=== PATIENT | female | born 1955 | race Caucasian/White ===

== ENCOUNTER 2020-01-03 09:21 | Outpatient (REF) | payer MEDICAID, SELFPAY | END 2020-01-03 09:22 | disposition home or self-care (01) | LOC: HO.LAB 09:21 | PROVIDERS: Visit Provider Internal Medicine | DX: Z20.828 Contact with and (suspected) exposure to other viral communicable diseases (principal) | CPT/HCPCS: C9803; U0003 ==

== ENCOUNTER 2020-04-08 14:00 | Outpatient (RCR) | payer MEDICAID, SELFPAY | END 2020-04-15 14:15 | disposition other institution (70) | LOC: HO.PTCHIC 14:00 | PROVIDERS: PCP Internal Medicine; Visit Provider Internal Medicine | DX: M54.5 Low back pain (principal) | CPT/HCPCS: 97014; 97110; 97140; 97161 ==

== ENCOUNTER 2020-07-29 12:59 | Outpatient (REF) | payer MEDICAID, SELFPAY ==
--- NOTE | ~2020-07-29 | XR_ITS ---
EXAMINATION: XR CHEST CLINICAL INFORMATION: Chest pain COMPARISON: Previous chest x-ray August 2013 TECHNIQUE: 2 views of the chest were obtained. FINDINGS: The cardiac and mediastinal contours are normal. The lungs are clear. There is no pleural effusion or pneumothorax. There are degenerative changes of the spine. XR/XR chest 2V IMPRESSION: Unremarkable examination.
== END 2020-07-29 13:00 | disposition home or self-care (01) ==
LOC: HO.XRAY 12:59
PROVIDERS: PCP Internal Medicine; Referring Provider Internal Medicine; Visit Provider Emergency Medicine
DX: R07.89 Other chest pain (principal)
CPT/HCPCS: 71046

== ENCOUNTER 2020-08-01 09:47 | Outpatient (REF) | payer MEDICAID, SELFPAY ==
--- NOTE | ~2020-08-01 | MM_ITS ---
EXAMINATION: MM SCREENING DIGITAL BREAST TOMOSYNTHESIS, BILATERAL CLINICAL INFORMATION: Screening. Asymptomatic. The lifetime risk of breast cancer based on the Tyrer-Cuzick Model is 3%. COMPARISON: Mammography: 03/14/2016, 02/22/2016, 04/25/2012 TECHNIQUE: Digital breast tomosynthesis is performed in both the craniocaudal and mediolateral oblique views along with computer-aided detection (CAD). Synthesized 2D images are generated from the tomosynthesis. FINDINGS: There are scattered areas of fibroglandular density (ACR BI-RADS breast composition Category b). There are no significant masses, abnormal calcifications, or other abnormalities. The axilla and skin contours are unremarkable. No significant changes. MM/MM tomosynthesis screening BI IMPRESSION: No mammographic evidence of malignancy. ASSESSMENT: BI-RADS 1: Negative RECOMMENDATION: Routine annual mammography screening. This patient's information was entered into a reminder system with a target due date for their next mammogram.
== END 2020-08-01 09:48 | disposition home or self-care (01) ==
LOC: HO.MAMMO 09:47
PROVIDERS: PCP Internal Medicine; Visit Provider Internal Medicine
DX: Z12.31 Encounter for screening mammogram for malignant neoplasm of breast (principal)
CPT/HCPCS: 77063; 77067

== ENCOUNTER → 2020-12-31 13:33 | Outpatient (BNVA) | payer MEDICAID, SELFPAY | PROVIDERS: PCP Internal Medicine; Referring Provider Internal Medicine; Visit Provider Internal Medicine | DX: I45.10 Unspecified right bundle-branch block (principal); I10 Essential (primary) hypertension; E78.5 Hyperlipidemia, unspecified; R07.2 Precordial pain; R06.02 Shortness of breath | CPT/HCPCS: 93005; 99202 ==

== ENCOUNTER 2021-02-22 10:00 | Outpatient (RCR) | payer MEDICAID, SELFPAY ==
[2021-01-14 13:01] VITALS: BP 133/75; PULSE 57
== END 2021-03-24 14:29 | disposition home or self-care (01) ==
LOC: HO.PT 10:00
PROVIDERS: PCP Internal Medicine; Visit Provider Internal Medicine
DX: R26.81 Unsteadiness on feet (principal)
CPT/HCPCS: 97110; 97161; 97530

== ENCOUNTER → 2021-03-25 07:10 | Outpatient (REF) | payer MEDICAID, SELFPAY ==
--- NOTE | 2021-03-25 07:16 | CA_ITS ---
Transthoracic Echocardiogram Patient (Last, First, Middle): Carina Carvajal, Gender: Female Date of : 1955 Age: 65 Procedure Date: 03/25/2021 Procedure Type: Transthoracic Echocardiogram Location: OP Height: 162.56 cm Weight: 57.61 kg BSA: 1.61 m2 Heart Rate: bpm BP: 125 / 72 mmHg Network Announcer: VIVI Referring MD: Sheldon Noble MD Domestic Technician: Praveen Crespo MD Symptoms: R07.2 - Precordial pain Study Quality: Fair ECG Rhythm: Sinus Conclusions: - Essentially normal study Findings Left Ventricle Normal left ventricular size, thickness, and systolic function. The visually estimated ejection fraction is between 60-65%. Spectral Doppler is indicative of a normal filling pattern. Right Ventricle Normal right ventricular cavity size and systolic function. Atria Both atria are normal in size. The atrial septum has a dumbell appearance. Interatrial shunt cannot be excluded. Aortic Valve The aortic valve structure and function is likely normal. There is no aortic valve stenosis. There is no aortic valve regurgitation. Mitral Valve Normal mitral valve structure and function. There is trace mitral valve regurgitation. There is no mitral valve stenosis. Pulmonic Valve The pulmonic valve was not well visualized. Tricuspid Valve Likely normal tricuspid valve structure and function. There is mild tricuspid valve regurgitation. The right ventricular systolic pressure is normal. The right ventricular systolic pressure is 31 mmHg. Normal right atrial pressure. There is no evidence of pulmonary hypertension. Great Vessels All visible segments of the aorta are normal in size. The pulmonary artery was not well visualized. Venous The inferior vena cava is normal in size and collapses greater than 50% with inspiration. Pericardium/Pleural There is no evidence of pericardial effusion. Prior Study Comparison No prior study available for comparison. Measurements 2D Linear Measurements IVSd: 1.03 0.6-0.9/0.6-1.0 cm LVIDd: 4.03 3.9-5.3/4.2-5.9 cm LVIDd Index: 2.50 2.4-3.2/2.2-3.1 cm/m2 LVIDs: 2.67 2.0-3.6 cm LVPWd: 0.91 0.7-1.1 cm Ao Root: 3.10 2.1-3.5 cm LA Diam: 2.50 2.7-3.8/3.0-4.0 cm LAIDs Index: 1.55 1.5-2.3 cm/m2 LV Mass: 153.11 67-162/88-224 g LV Mass Index: 95.10 43-95/49-115 g/m2 LVOT Diam: 2.20 3.0+(-)1.3 cm 2D Systolic Function EF 4C: 73.10 >55% EF 2C: 57.70 >55% EF BiP: 67.20 >55% Mitral Valve MV Pk E: 0.82 MV PK A: 0.68 MV Decel Time: 181.00 E/A: 1.20 E'Lateral: 7.29 E'Medial: 7.62 E/E' Med: 10.80 E/E' Lat: 11.30 PHT: 53.00 MVA PHT: 4.15 Decel Custer: 4.55 Aortic Valve AoV Pk Daniel: 0.92 AoV Pk Grad: 3.00 LVOT LVOT Pk Daniel: 0.74 LVOT Mn Daniel: 0.48 LVOT VTI: 0.21 LVOT Pk Grad: 2.00 LVOT Mn Grad: 1.00 LVOT Diam: 2.20 LVOT Area: 3.80 Diastolic Function MV Pk E: 0.82 MV Pk A: 0.68 E/A: 1.20 E'Medial: 7.62 E/E' Med: 10.80 E' Laterial: 7.29 E/E' Lat: 11.30 Right Ventricle TAPSE (mm): 2.03 TVS' Daniel: 11.90 Tricuspid Valve TR Pk Daniel: 2.63 TR Pk Grad: 28.00 RA Press: 3.00 RVSP: 31.00 Great Vessels Aorta Ao Root-2D: 3.10 2.0-3.7 cm Ao Asc: 2.90 2.1-3.4 cm Updated in Other Vendor System with Status of Final Praveen Crespo MD electronically signed on 03/25/2021 9:37:59 AM with status of Final
== END ==
LOC: HO.CARD 07:10
PROVIDERS: PCP Internal Medicine; Visit Provider Internal Medicine
DX: R07.2 Precordial pain (principal); R06.02 Shortness of breath
CPT/HCPCS: 93306

== ENCOUNTER → 2021-03-29 07:29 | Outpatient (REF) | payer MEDICAID, SELFPAY ==
--- NOTE | ~2021-03-29 | NM_ITS ---
EXERCISE MYOCARDIAL PERFUSION STUDY INDICATION: Chest pain, shortness of breath, assess for coronary disease and ischemia TECHNIQUE: The patient was brought in for an exercise perfusion study on 03/29/2021. Patient performed exercise as per Param protocol and was injected 25 mCi of sestamibi once target heart rate was achieved. Images were obtained using the SPECT gamma camera interlaced with the gating device. Images were obtained in supine position. Resting perfusion study was performed on 03/30/2021. Patient was administered 25 mCi of sestamibi intravenously at rest. Images were then obtained in supine position. Total DLP 78mGy-cm. Images were processed with the software and compared side to side in short axis, horizontal long axis and vertical long axis views. FINDINGS: Raw images were reviewed. The stress perfusion study showed no significant perfusion abnormality. Both uncorrected as well as CT attenuation corrected images were reviewed. The gated study shows normal LV systolic function with calculated LVEF of 70%. LV cavity is normal in size. The gated study shows normal wall thickening and contraction of segments. Resting study shows no significant perfusion abnormality. Gating at rest reveals normal wall motion with ejection fraction at 63%. The findings are consistent with no reversible or fixed perfusion abnormality. NM/NM cardiolite stress test IMPRESSION: 1. Myocardial perfusion imaging study shows normal myocardial perfusion. No evidence of any ischemia or infarction. 2. Gated LVEF is 70% during stress and 63% during rest. 3. Transient ischemic dilatation not present. EKG component of the test reported separately.
--- NOTE | 2021-03-29 07:34 | CA_ITS ---
Acquisition Time: 2021-03-29 07:55:28 Total Exercise Time: 00:07:20 Test Indications: ,RBBB Medications: ALBUTEROL ATORVASTATIN CLONAZAPAM ESCITALOPRAM HCTZ LOSARTAN NAPROXEN Protocol: JAVIER Max HR: 141 BPM 89% of Pred: 157 BPM Max BP: 190/090 mmHG Max Work Load: 9.0 METS Exercise stess test with exercise 7 min 20 sec of Javier protocol, with reported moderate shortness of breath, no chest discomfort, with isolated PVCs, with normotensive response to exercise, without EKG changes meeting criteria for ischemia. Nuclear images pending. Test reviewed with Dr Crespo Referred By: Sheldon Noble Overread By: MARIELA TANG
== END ==
LOC: HO.CARD 07:29
PROVIDERS: PCP Internal Medicine; Visit Provider Internal Medicine
DX: R07.2 Precordial pain (principal)
CPT/HCPCS: 78452; 93017; A9500

== ENCOUNTER → 2021-04-12 12:22 | Outpatient (BNVA) | payer MEDICAID, SELFPAY | PROVIDERS: PCP Internal Medicine; Referring Provider Internal Medicine; Visit Provider Internal Medicine | DX: R07.2 Precordial pain (principal); R06.02 Shortness of breath; I45.10 Unspecified right bundle-branch block; I10 Essential (primary) hypertension; Z79.899 Other long term (current) drug therapy | CPT/HCPCS: 99212 ==

== ENCOUNTER 2021-07-02 10:16 | Outpatient (REF) | payer MEDICAID, SELFPAY ==
--- NOTE | ~2021-07-02 | XR_ITS ---
EXAMINATION: XR KNEE, RIGHT CLINICAL INFORMATION: Right knee pain COMPARISON: None TECHNIQUE: Four views of the right knee. FINDINGS: Bones and soft tissues are normal. No fracture or joint effusion. Alignment is anatomic. Joint spaces are well maintained. There is mild patellar spurring. The insertion of quadriceps tendon No abnormal soft tissue calcification. XR/XR knee RT 4V IMPRESSION: Patellar spurring
--- NOTE | ~2021-07-02 | XR_ITS ---
EXAMINATION: XR KNEE, LEFT CLINICAL INFORMATION: Left knee pain COMPARISON: None TECHNIQUE: Four views of the left knee. FINDINGS: Bones and soft tissues are normal. No fracture or joint effusion. There is minimal patellar spurring at the insertion of quadriceps tendon. Alignment is anatomic. Joint spaces are well maintained. No abnormal soft tissue calcification. XR/XR knee LT 4V IMPRESSION: Mild patellar spurring
== END 2021-07-02 10:17 | disposition home or self-care (01) ==
LOC: HO.XRAY 10:16
PROVIDERS: PCP Internal Medicine; Visit Provider Internal Medicine
DX: M25.561 Pain in right knee (principal); M25.562 Pain in left knee
CPT/HCPCS: 73564

== ENCOUNTER 2021-08-26 07:53 | Outpatient (REF) | payer MEDICAID, SELFPAY ==
--- NOTE | ~2021-08-26 | XR_ITS ---
EXAMINATION: XR KNEE AP STANDING CLINICAL INFORMATION: Pain COMPARISON: 07/02/2021 knee radiographs TECHNIQUE: AP bilateral standing view of the knees was obtained. FINDINGS: Limited single AP view of the bilateral standing knees demonstrate no significant degenerative change. No appreciable fracture or dislocation. Soft tissues are unremarkable. XR/XR knee standing BI IMPRESSION: Limited single AP view of the bilateral standing knees demonstrates no appreciable significant degenerative change.
== END 2021-08-26 07:54 | disposition home or self-care (01) ==
LOC: HO.HOSX 07:53
PROVIDERS: Visit Provider Physician Assistant
DX: M25.561 Pain in right knee (principal); M25.562 Pain in left knee; M22.2X1 Patellofemoral disorders, right knee; M22.2X2 Patellofemoral disorders, left knee; M54.50 Low back pain, unspecified
CPT/HCPCS: 73565; 99202

== ENCOUNTER → 2021-09-21 14:43 | Outpatient (BNVA) | payer MEDICAID, SELFPAY | PROVIDERS: PCP Internal Medicine; Visit Provider Nurse Practitioner Family | DX: M47.816 Spondylosis without myelopathy or radiculopathy, lumbar region (principal); M46.1 Sacroiliitis, not elsewhere classified; M22.2X1 Patellofemoral disorders, right knee; M22.2X2 Patellofemoral disorders, left knee; G89.29 Other chronic pain; F12.90 Cannabis use, unspecified, uncomplicated; Z79.899 Other long term (current) drug therapy | CPT/HCPCS: 99202 ==

== ENCOUNTER 2021-09-22 10:54 | Outpatient (REF) | payer MEDICAID, SELFPAY ==
--- NOTE | ~2021-09-22 | XR_ITS ---
EXAMINATION: XR SI JOINT XR LUMBAR SPINE WITH BENDING VIEWS CLINICAL INFORMATION: Sacroiliitis. Spondylosis without myelopathy or radiculopathy. COMPARISON: None TECHNIQUE: AP and oblique views of SI joints. Lumbar spine 7 views. FINDINGS: SI Joints: There is normal symmetry of bilateral SI joints without any sclerosis or lytic process. The sacrum appears unremarkable. No acute fracture seen. Lumbar Spine: There is maintained lumbar lordosis. There is grade I anterolisthesis L5 over S1. The rest of the vertebral alignment is normal. There is loss of L5-S1 disc height. Moderate facet joint arthropathy at the L5-S1 disc level is noted. There is no pars defect seen. There is no acute fracture or lytic process. On bending and extension views, there is mild improvement in the anterolisthesis of L5 over S1 listhesis. No aggressive lytic or sclerotic process seen. Incidental note is made of anterior wedging of the T12 vertebra of indeterminate age. XR/XR lumbar spine 6V w bending IMPRESSION: Grade 1 anterolisthesis L5 over S1 with degenerative disc changes at the L5-S1 disc level. There is ygbklttm-vj-spzmardyhhg L5-S1 and mild L4-L5 facet joint arthropathy. Anterior wedging of the T12 vertebra of indeterminate age.
--- NOTE | ~2021-09-22 | XR_ITS ---
EXAMINATION: XR SI JOINT XR LUMBAR SPINE WITH BENDING VIEWS CLINICAL INFORMATION: Sacroiliitis. Spondylosis without myelopathy or radiculopathy. COMPARISON: None TECHNIQUE: AP and oblique views of SI joints. Lumbar spine 7 views. FINDINGS: SI Joints: There is normal symmetry of bilateral SI joints without any sclerosis or lytic process. The sacrum appears unremarkable. No acute fracture seen. Lumbar Spine: There is maintained lumbar lordosis. There is grade I anterolisthesis L5 over S1. The rest of the vertebral alignment is normal. There is loss of L5-S1 disc height. Moderate facet joint arthropathy at the L5-S1 disc level is noted. There is no pars defect seen. There is no acute fracture or lytic process. On bending and extension views, there is mild improvement in the anterolisthesis of L5 over S1 listhesis. No aggressive lytic or sclerotic process seen. Incidental note is made of anterior wedging of the T12 vertebra of indeterminate age. XR/XR sacroiliac joint min 3V IMPRESSION: Grade 1 anterolisthesis L5 over S1 with degenerative disc changes at the L5-S1 disc level. There is gnqnkffg-wk-mofyqdilsgj L5-S1 and mild L4-L5 facet joint arthropathy. Anterior wedging of the T12 vertebra of indeterminate age.
[2021-09-22 14:32] LABS: Amphetamine Screen Urine Not Detected (Not Detect); Barbiturates, Urine Not Detected (Not Detect); Benzodiazepines Screen Urine Not Detected (Not Detect); Cannabinoid Screen Urine POSITIVE (Not Detect); Cocaine Screen Urine Not Detected (Not Detect); Fentanyl, urine Not Detected (Not Detect); Opiate Screen Urine Not Detected (Not Detect); Phencyclidine Screen Urine Not Detected (Not Detect)
== END 2021-09-22 10:55 | disposition home or self-care (01) ==
LOC: HO.XRAY 10:54
PROVIDERS: PCP Internal Medicine; Visit Provider Nurse Practitioner Family
DX: M47.816 Spondylosis without myelopathy or radiculopathy, lumbar region (principal); M46.1 Sacroiliitis, not elsewhere classified; F12.90 Cannabis use, unspecified, uncomplicated
CPT/HCPCS: 72114; 72202; 80307

== ENCOUNTER 2022-01-13 07:50 | Outpatient (REF) | payer MEDICAID, SELFPAY ==
--- NOTE | ~2022-01-13 | MM_ITS ---
EXAMINATION: MM SCREENING DIGITAL BREAST TOMOSYNTHESIS, BILATERAL CLINICAL INFORMATION: Screening. Asymptomatic. The lifetime risk of breast cancer based on the Tyrer-Cuzick Model is 3.2%. COMPARISON: Mammography: August 01, 2020 and studies dating back to April 25, 2012 TECHNIQUE: Digital breast tomosynthesis is performed in both the craniocaudal and mediolateral oblique views along with computer-aided detection (CAD). Synthesized 2D images are generated from the tomosynthesis. FINDINGS: There are scattered areas of fibroglandular density (ACR BI-RADS breast composition Category b). There are no significant masses, abnormal calcifications, or other abnormalities. MM/MM tomosynthesis screening BI IMPRESSION: No significant changes from prior exam. ASSESSMENT: BI-RADS 1: Negative RECOMMENDATION: Routine annual mammography screening. This patient's information was entered into a reminder system with a target due date for their next mammogram.
== END 2022-01-13 07:51 | disposition home or self-care (01) ==
LOC: HO.MAMMO 07:50
PROVIDERS: PCP Internal Medicine; Visit Provider Internal Medicine
DX: Z12.31 Encounter for screening mammogram for malignant neoplasm of breast (principal)
CPT/HCPCS: 77063; 77067

== ENCOUNTER 2022-07-29 10:20 | Emergency (ER) | payer MEDICARE, MEDICAID, SELFPAY ==
--- NOTE | ~2022-07-29 | CT_ITS ---
EXAMINATION: CT HEAD WITHOUT CONTRAST CLINICAL INFORMATION: Fall and headache. COMPARISON: CT head 09/08/2017. TECHNIQUE: Contiguous axial imaging was performed from the skull base to vertex without intravenous administration of contrast. This CT examination was performed using dose optimization techniques as appropriate, variously including the following: *Automated exposure control *Adjustment of mA and/or kV according to patient size (this includes techniques or standardized protocols for targeted exams where dose is matched to indication/reason for exam; i.e. extremities or head) *Use of iterative reconstruction technique DLP: 563 mGy-cm FINDINGS: There is no acute intracranial hemorrhage or abnormal extra-axial collection. No intracranial mass effect or midline shift. Lateral and third ventricles are normal. No hydrocephalus. Mosher-white matter differentiation is preserved and there is no evidence of acute territorial infarct. The calvarium and skull base are intact. Mastoid air cells and middle ear cavities are well aerated. No active paranasal sinus disease. CT/CT head/brain wo IV con IMPRESSION: Unremarkable CT scan of the head. No evidence of acute territorial infarct or hemorrhage.
--- NOTE | ~2022-07-29 | XR_ITS ---
EXAMINATION: XR CHEST CLINICAL INFORMATION: Fall. Head trauma. COMPARISON: Previous chest x-ray July 2020 TECHNIQUE: Frontal view of the chest was obtained. FINDINGS: No significant abnormality is noted involving the heart, lungs, mediastinum, bony thorax or soft tissues. Degenerative changes of the spine. XR/XR chest 1V IMPRESSION: No evidence for acute disease in the chest.
[2022-07-29 10:25] VITALS: BP 177/89; PULSE 61; RESP 18; TEMP 36.6; O2SAT 95; BMI 23.8
--- NOTE | 2022-07-29 10:40 | ECG_ITS ---
Test Reason : WEAKNESS Blood Pressure : / mmHG Vent. Rate : 062 BPM Atrial Rate : 062 BPM P-R Int : 162 ms QRS Dur : 132 ms QT Int : 476 ms P-R-T Axes : 046 042 017 degrees QTc Int : 483 ms Normal sinus rhythm Right bundle branch block Abnormal ECG When compared with ECG of 25-DEC-2013 13:30, Right bundle branch block is now Present Referred By: Angela Randall Electronically Signed By:JOSEPH PEREZ MD
--- OUTSIDE RECORDS SUMMARY | 2022-07-29 10:55 | XMS_ITS | Continuity of Care Document ---
Author Name Unknown Organization [facility] Address Unknown Care Team Providers Care Thread Separator Name Role Phone Sandy SAPP, Gissel Primary Care Physician [phone] [id number] Date(s): 11/16/20 - 12/16/20 [facility] Allergies, Adverse Reactions, Alerts Substance Reaction Severity Status NKA Active Medications Celexa 20 mg oral tablet 20, mg, 1, tablet, By Mouth, Daily, 30, tablet, 0, 0, 01/31/07 11:46:53, Print [facility] Number, [id number], Constant Indicator Start Date: 01/31/07 Stop Date: 03/02/07 Status: Ordered lorazepam 0.5 mg oral tablet 0.5, mg, 1, tablet, By Mouth, Daily, 0, 0, 12/24/07 12:22:39, Print [facility] Number, [id number], Constant Indicator Start Date: 12/24/07 Status: Ordered omeprazole 20 mg oral enteric coated capsule 20, mg, 1, capsule, By Mouth, Daily, 30, capsule, 1, 1, 11/28/07 11:24:50, Print [facility] Number, [address] [place] [id number], [id number], Constant Indicator Start Date: 11/28/07 Stop Date: 01/27/08 Status: Ordered Percocet-5/325 325 mg-5 mg oral tablet See Instructions, Scheduled / PRN, 10, 0, 0, 04/03/08 13:29:11, every 6 hours as needed for pain, 1tablet By Mouth, Print [facility] Number, [id number] Start Date: 04/03/08 Status: Ordered Seroquel 50 mg oral tablet 50, mg, 1, tablet, By Mouth, Daily at bedtime, 0, 11/28/07 11:21:05, Print [facility] Number, 144, Constant Indicator Start Date: 11/28/07 Status: Ordered Skelaxin 800, mg, By Mouth, 3 times a day, Scheduled / PRN, 30, 0, 0, 04/24/08 14:34:50, as needed for back pain, Print [facility] Number, 68 Start Date: 04/24/08 Status: Ordered Splint carpal tunnel splints, # 2 each, 06/05/08 13:31:41 Start Date: 06/05/08 Status: Ordered trazodone 100 mg oral tablet 100, mg, 1, tablet, By Mouth, Daily at bedtime, 0, 0, 12/24/07 12:22:04, Print [facility] Number, 144, Constant Indicator Start Date: 12/24/07 Status: Ordered Trileptal 300 mg oral tablet 600, mg, 2, tablet, By Mouth, 2 times a day, 0, 11/28/07 11:21:27, Print [facility] Number, [id number], Constant Indicator Start Date: 11/28/07 Status: Ordered Problem List Condition Effective Dates Status Health Status Inform ant Cervical polyp(Confirmed) Active Depression(Confirmed) Active Fibroid uterus(Confirmed) Active PTSD - Post-traumatic stress disorder(Confirmed) Active
--- NOTE | 2022-07-29 11:40 | ED_ITS ---
HPI - General Adult General Chief complaint: General Medical Stated complaint: blurry vision, not eating Time Seen by Provider: 07/29/22 10:39 Source: patient Mode of arrival: ambulatory Limitations: no limitations History of Present Illness HPI narrative: Patient is a 67 year old female with history of HTN, lumbar spondylosis, sacroiliitis who presents with 4 days of confusion, nausea, tight sensation around head and not eating. She reports that 2 weeks ago she had a fall and hit her head no LOC ( slip and fall out of shower), she was not seen by a provider at that time and reports feeling well afterwards. However, 4 days ago she report onset of confusion, difficulty with word finding and decreased eating secondary to nausea states that this comes in waves lasts a few hours and then resolves. This has never happened to her before. She denies additonal symptoms at this time including abdominal pain, vomitting, headaches, chest pain, shortness of breath, loss of balance or coordination, changes in vision. Not on thinners. NIHSS-0 Related Data Home Medications Medication Instructions Recorded Confirmed albuterol sulfate 90 mcg/actuation 2 puff PO Q4-6H PRN 12/31/20 09/21/21 aerosol inhaler (ProAir HFA) atorvastatin 40 mg tablet 40 mg PO DAILY 12/31/20 09/21/21 cholecalciferol (vitamin D3) 25 25 mcg PO DAILY 12/31/20 09/21/21 mcg (1,000 unit) tablet clonazepam 1 mg tablet 0 mg PO 12/31/20 09/21/21 escitalopram oxalate 10 mg tablet 10 mg PO QAM 12/31/20 09/21/21 hydrochlorothiazide 25 mg tablet 25 mg PO DAILY 12/31/20 09/21/21 latanoprost 0.005 % eye drops 1 drp ophthalmic (eye) QPM 12/31/20 09/21/21 losartan 50 mg tablet 50 mg PO DAILY 12/31/20 09/21/21 polyethylene glycol 3350 17 17 g PO DAILY 12/31/20 09/21/21 gram/dose oral powder Previous Rx's Medication Instructions Recorded diclofenac sodium 1 % topical gel 4 g topical QID 30 days #100 grams 01/03/22 naproxen 500 mg tablet 500 mg PO Q12H PRN for pain 30 01/03/22 days #60 tabs cefuroxime axetil 250 mg tablet 250 mg PO BID 7 days #14 tabs 07/29/22 Allergies Allergy/AdvReac Type Severity Reaction Status Date / Time No Known Allergies Allergy Verified 09/21/21 15:06 [No Known Allergies*] Review of Systems Review of Systems: Constitutional : No Weight loss, No Fever, No Chills, + Fatigue, + Malaise ENT/Mouth : No sore throat, No Rhinorrhea Eyes: No Eye Pain, No Swelling, No Redness Cardiovascular : No Chest Pain, No SOB, No Dyspnea on Exertion, No Orthopnea, No Edema, No Palpitations Respiratory : No Cough, No Sputum, No Wheezing Gastrointestinal : + Nausea, No Vomiting, No Diarrhea, No Constipation, No abdominal Pain, No Hematochezia, No Melena Genitourinary : No Dysuria, No Urinary Frequency, No Hematuria, Musculoskeletal : No joint pain, No Myalgias, No Joint Swelling Skin : No Skin Lesions, No rash Neuro : No Weakness, No Numbness, No Dizziness, + Headache Psych : No Anxiety/Panic, No Depression All other systems reviewed and are negative Yes all other systems are reviewed and are negative [facility] Past Medical History Attestation statement: The following information was validated with the patient. Source: old records reviewed and nursing notes reviewed Medical History (Updated 07/29/22 @ 15:42 by ARCELIA Mary) Patellofemoral arthralgia of both knees Surgical History No pertinent past surgical history Family History Family History Father No problems noted. Mother No problems noted. Social History Social History Alcohol intake: never Patient Tobacco Use Status: Never used Tobacco Smoked in Last 30 Days: No Use of substances other than those prescribed or required for medical reasons: Yes Substance Use Type: Marijuana Substance Use Frequency: Occasionally Advance Directives: No Advance Directives Information Provided: Yes Physical Exam ED Vital Signs: Vital Signs - 24 hr 07/29/22 10:25 07/29/22 13:30 Temperature 97.9 F Pulse Rate 61 56 Respiratory Rate 18 16 Blood Pressure 177/89 H 168/88 H Pulse Oximetry 95 96 Oxygen Delivery Method Room Air Room Air BMI result Body Mass Index 23.8 vss Appearance: Alert.? Oriented X3.? No acute distress.? Head: Normocephalic, atraumatic, no step-offs or deformities Eyes: Pupils equal, round and reactive to light.? Extraocular movements intact, pain-free, no signs of entrapment. ENT: Pharynx normal.? Neck: Normal inspection.? Neck supple.? CVS: Normal heart rate and rhythm.? Pulses normal.? Respiratory: No respiratory distress.? Breath sounds normal.? Abdomen: Soft and nontender.? Skin: Skin warm and dry.? Normal skin color.? Normal skin turgor.? Extremities: No lower extremity edema.? No calf ttp. 5/5 strength to bilateral upper and lower extremities Neuro: Oriented X 3.? No motor deficit.? No sensory deficit. CN 2-12 intact . Negative Romberg and pronator drift, normal [id number], [id number], steady tandem gait normal coordination. NIHSS0 GCS-15 Course Reevaluation(s) Reevaluation #1: CBC within normal limits. Chemistry unremarkable. Troponin negative, EKG nonischemic unlikely ACS. CPK just slightly elevated will give fluids. UA with infection blood cultures, lactic acid pending, ceftriaxone ordered for UTI. CT of head unremarkable. No evidence of acute territorial infarction or hemorrhage. X-ray no acute disease. Time: 15:12 Reevaluation #2: I did discuss this case with my attending tells me patient can be discharged h ome with Neurology follow-up for post concussive syndrome. Recommend antibiotics for home for UTI. No reason or hospital admission, neuro still nonfocal, cerebellar her still intact. Educated patient on diagnosis and treatment plan, answered all question, patient verbalizes understanding. At thi s time patient will be discharged home, advised to return with new or worsening symptoms. Educated on worrisome signs and symptoms and when to return. At this time I feel comfortable discharge home. Time: 15:45 Medications Administered Generic Name Dose Route Start Last Admin Trade Name Freq PRN Reason Stop Dose Admin Ceftriaxone Sodium 1 gm/ 50 mls @ 100 mls/hr 07/29/22 15:11 07/29/22 15:33 Sodium Chloride IV 07/29/22 15:40 100 mls/hr ONCE ONE Administration Sodium Chloride 1,000 mls @ 999 mls/hr 07/29/22 15:15 07/29/22 15:32 Ns IV 07/29/22 16:15 999 mls/hr .Q1H1M CARLOS EDUARDO Administration Medical Decision Making Medical Decision Making [facility] Narrative: 67-year-old female presents with nausea, poor p.o. intake, head tightness, confusion for the past 4 days intermittently. Reports a fall 2 weeks ago. Not on blood thinners peer Exam benign. Neuro nonfocal, cerebellar intact. NIH stroke scale 0. Likely post concusive sp fall. Will rule out UTI, electrolyte abnormalities. Unlikely stroke, posterior stroke, intracranial hemorrhage. Unlikely cardiac etiology, or PE. Patient out of stroke window regardless Plan labs, imaging, urine. Differential Diagnosis Differential Diagnoses: The differential diagnosis associated with the presentation includes Likely post concusive sp fall. Will rule out UTI, electrolyte abnormalities. Unlikely stroke, posterior stroke, intracranial hemorrhage. Unlikely cardiac etiology, or PE. Patient out of stroke window regardless Admission/Observation Consideration of admission/observation: Escalation of care including admission/observation considered Consult Healthcare Provider Management of the patient was discussed with: Driver Medic (attending dr. hardy ) Lab Data [facility] Lab Attestation statement: I reviewed the patient's lab results. 07/29/22 11:48 07/29/22 11:48 Labs: Lab Results 07/29/22 07/29/22 07/29/22 Range/Units 11:48 11:48 11:48 WBC 7.4 (4.8-10.8) X10*3/uL RBC 4.91 (4.20-5.50) X10*6/uL Hgb 15.1 (12.0-16.0) g/dl Hct 44.3 (37.0-47.0) % MCV 90.2 (80.0-98.0) fL MCH 30.8 (27.0-33.0) pg MCHC 34.1 (31.0-35.0) g/dl RDW 12.7 (11.0-16.0) % Plt Count 248 (160-400) X10*3/uL MPV 10.3 (9.4-12.3) fL Immature Gran % (Auto) 0.5 H (0.0-0.4) % Neut % (Auto) 52.8 (45-73) % Lymph % (Auto) 38.7 (20-40) % Adams % (Auto) 7.1 (2-11) % Eos % (Auto) 0.4 (0-4) % Baso % (Auto) 0.5 (0-2) % Lymph # (Auto) 2.9 (1.2-4.9) X10*3/uL Adams # (Auto) 0.5 (0.1-1.2) X10*3/uL Eos # (Auto) 0.0 (0.0-0.4) X10*3/uL Baso # (Auto) 0.0 (0.0-0.2) X10*3/uL Abs Immat Gran (auto) 0.04 H (0.00-0.03) X10*3/uL Absolute Neuts (auto) 3.9 (2.0-8.3) x10*3/uL Absolute Nucleated RBC 0.000 (0.0-0.012) X10*3/uL Nucleated RBC % (auto) 0.0 (0.0-0.2) /100WBC ESR 11 (0-20) MM/HR Sodium 143 (135-145) mmol/L Potassium 4.3 (3.3-5.1) mmol/L Chloride 103 (96-108) mmol/L Carbon Dioxide 32 H (22-29) mmol/L Anion Gap 12 (12-20) BUN 11 (9-16) mg/dL Creatinine 0.69 (0.5-1.4) mg/dL Estim Creat Clear Calc 73.1 Estimated GFR > 60 Random Glucose 94 (60-115) mg/dL Calcium 10.5 H (8.4-10.2) mg/dL Magnesium 2.1 (1.6-2.6) mg/dL Total Bilirubin 0.6 (0.0-1.0) mg/dL AST 24 (5-31) U/L ALT 19 (0-31) U/L Alkaline Phosphatase 90 (39-117) U/L Total Creatine Kinase 162 H (26-140) U/L Troponin I High Sens (<3.5-17.0) ng/L C-Reactive Protein 0.11 (< or = 0.50) mg/dL Total Protein 8.7 H (6.5-8.0) g/dL Albumin 4.6 (3.5-5.0) g/dL Urine Color Urine Appearance Urine pH (5.0-9.0) Ur Specific [place] (1.005-1.025) Urine Protein (Neg-Trace) mg/dL Urine Glucose (UA) (Negative) mg/dL Urine Ketones (Negative) mg/dL Urine Blood (Negative) Urine Nitrite (Negative) Ur Leukocyte Esterase (Negative) Urine RBC (0-2) /HPF Urine WBC (0-5) /HPF Ur Squamous Epith Cells (0-2) /HPF Urine Bacteria (None Seen) Hyaline Casts (0-2) /LPF 07/29/22 07/29/22 Range/Units 11:48 13:21 WBC (4.8-10.8) X10*3/uL RBC (4.20-5.50) X10*6/uL Hgb (12.0-16.0) g/dl Hct (37.0-47.0) % MCV (80.0-98.0) fL MCH (27.0-33.0) pg MCHC (31.0-35.0) g/dl RDW (11.0-16.0) % Plt Count (160-400) X10*3/uL MPV (9.4-12.3) fL Immature Gran % (Auto) (0.0-0.4) % Neut % (Auto) (45-73) % Lymph % (Auto) (20-40) % Adams % (Auto) (2-11) % Eos % (Auto) (0-4) % Baso % (Auto) (0-2) % Lymph # (Auto) (1.2-4.9) X10*3/uL Adams # (Auto) (0.1-1.2) X10*3/uL Eos # (Auto) (0.0-0.4) X10*3/uL Baso # (Auto) (0.0-0.2) X10*3/uL Abs Immat Gran (auto) (0.00-0.03) X10*3/uL Absolute Neuts (auto) (2.0-8.3) x10*3/uL Absolute Nucleated RBC (0.0-0.012) X10*3/uL Nucleated RBC % (auto) (0.0-0.2) /100WBC ESR (0-20) MM/HR Sodium (135-145) mmol/L Potassium (3.3-5.1) mmol/L Chloride (96-108) mmol/L Carbon Dioxide (22-29) mmol/L Anion Gap (12-20) BUN (9-16) mg/dL Creatinine (0.5-1.4) mg/dL Estim Creat Clear Calc Estimated GFR Random Glucose (60-115) mg/dL Calcium (8.4-10.2) mg/dL Magnesium (1.6-2.6) mg/dL Total Bilirubin (0.0-1.0) mg/dL AST (5-31) U/L ALT (0-31) U/L Alkaline Phosphatase (39-117) U/L Total Creatine Kinase (26-140) U/L Troponin I High Sens < 2.7 (<3.5-17.0) ng/L C-Reactive Protein (< or = 0.50) mg/dL Total Protein (6.5-8.0) g/dL Albumin (3.5-5.0) g/dL Urine Color Yellow Urine Appearance Clear Urine pH 7.0 (5.0-9.0) Ur Specific [place] 1.010 (1.005-1.025) Urine Protein Negative (Neg-Trace) mg/dL Urine Glucose (UA) Negative (Negative) mg/dL Urine Ketones Negative (Negative) mg/dL Urine Blood Negative (Negative) Urine Nitrite Negative (Negative) Ur Leukocyte Esterase Trace H (Negative) Urine RBC 3-5 H (0-2) /HPF Urine WBC 6-10 H (0-5) /HPF Ur Squamous Epith Cells 0-2 (0-2) /HPF Urine Bacteria 4+ (None Seen) Hyaline Casts 0-2 (0-2) /LPF Independent Interpretation I performed an independent interpretation of an: EKG (Ventricular rate of 62, LA normal, QRS normal, QT/QTC normal. EKG with normal sinus rhythm and right bundle-branch BRCA no ST elevations or inversions concerning for ischemia.), Plain X-Ray (XR/XR chest 1V IMPRESSION: No evidence for acute disease in the chest.) and CT Scan (CT/CT head/brain wo IV con IMPRESSION: Unremarkable CT scan of the head. No evidence of acute territorial infarct or hemorrhage.) Radiology Impression Discussion of test interpretation with radiology: I have reviewed the radiologist's reading. Critical Care Time Critical Care Time Critical Care Time: No Discharge Plan Discharge Clinical Impression: Acute UTI, Post-concussion syndrome Patient Disposition: Home, Self-Care Instructions: Urinary Tract Infection in Women (DC) Additional Instructions: Take your medications as prescribed. If you were prescribed antibiotics today, it is important that you take your medication to their entirety, do not skip any doses, do not finish them early. Follow-up with your primary care provider this week. Please follow-up with neurology for post concussive syndrome Return to the emergency department with new or worsening symptoms. Such as fevers, chills, chest pain, shortness of breath, nausea, vomiting, dizziness, headache, vision changes, lethargy, altered mental status, seizure-like activity. In case of emergency call 911 XR/XR chest 1V IMPRESSION: No evidence for acute disease in the chest. CT/CT head/brain wo IV con IMPRESSION: Unremarkable CT scan of the head. No evidence of acute territorial infarct or hemorrhage. Prescriptions: New cefuroxime axetil 250 mg tablet 250 mg PO BID 7 Days Qty: 14 0RF No Action diclofenac sodium 1 % gel 4 g topical QID 30 Days Qty: 100 0RF naproxen 500 mg tablet 500 mg PO Q12H PRN (Reason: for pain) 30 Days Qty: 60 0RF cholecalciferol (vitamin D3) 25 mcg (1,000 unit) tablet 25 mcg PO DAILY escitalopram oxalate 10 mg tablet 10 mg PO QAM albuterol sulfate [ProAir HFA] 90 mcg/actuation HFA aerosol inhaler 2 puff PO Q4-6H PRN polyethylene glycol 3350 17 gram/dose powder 17 g PO DAILY hydrochlorothiazide 25 mg tablet 25 mg PO DAILY atorvastatin 40 mg tablet 40 mg PO DAILY losartan 50 mg tablet 50 mg PO DAILY clonazepam 1 mg tablet 0 mg PO latanoprost 0.005 % drops 1 drp ophthalmic (eye) QPM Referrals: [facility] [Provider Group] - 1 day Center,[facility] [Primary Care Provider] - 2 days
[2022-07-29 11:54] LABS: MANUAL DIFF FLAG NO
[2022-07-29 11:55] LABS: Basophils Percent Auto 0.5 % (0-2); Eosinophils Percent Auto 0.4 % (0-4); Hematocrit 44.3 % (37.0-47.0); Hemoglobin 15.1 g/dl (12.0-16.0); Imm Gran Abs Auto 0.04 X10*3/uL (0.00-0.03); Imm Gran Pct Auto 0.5 % (0.0-0.4); Lymphocytes Absolute Auto 2.9 X10*3/uL (1.2-4.9); Lymphocytes Percent Auto 38.7 % (20-40); Mean Corpuscular HGB Conc 34.1 g/dl (31.0-35.0); Mean Corpuscular Hemoglobin 30.8 pg (27.0-33.0); Mean Corpuscular Volume 90.2 fL (80.0-98.0); Mean Platelet Volume 10.3 fL (9.4-12.3); Monocytes Absolute Auto 0.5 X10*3/uL (0.1-1.2); Monocytes Percent Auto 7.1 % (2-11); Neutrophils Absolute Auto 3.9 x10*3/uL (2.0-8.3); Neutrophils Percent Auto 52.8 % (45-73); Platelet Count 248 X10*3/uL (160-400); Red Blood Count 4.91 X10*6/uL (4.20-5.50); Red Cell Distribution Width 12.7 % (11.0-16.0); White Blood Count 7.4 X10*3/uL (4.8-10.8)
[2022-07-29 12:12] LABS: Alanine Aminotransferase 19 U/L (0-31); Albumin Level 4.6 g/dL (3.5-5.0); Alkaline Phosphatase 90 U/L (39-117); Anion Gap 12 (12-20); Aspartate Amino Transferase 24 U/L (5-31); Bilirubin Total 0.6 mg/dL (0.0-1.0); Blood Urea Nitrogen 11 mg/dL (9-16); C Reactive Protein 0.11 mg/dL (< or = 0.50); Calcium 10.5 mg/dL (8.4-10.2); Carbon Dioxide 32 mmol/L (22-29); Chloride 103 mmol/L (96-108); Creatinine Clr Calc Pharmacy 73.1; Estimated Glomerular Filt Rate > 60; Glucose Random 94 mg/dL (60-115); Magnesium 2.1 mg/dL (1.6-2.6); Potassium 4.3 mmol/L (3.3-5.1); Sodium 143 mmol/L (135-145); Total Protein 8.7 g/dL (6.5-8.0)
[2022-07-29 12:26] LABS: Troponin-I High Sensitivity < 2.7 ng/L (<3.5-17.0)
[2022-07-29 12:33] LABS: Erythrocyte Sedimentation Rate 11 MM/HR (0-20)
[2022-07-29 13:28] LABS: Appearance Urine Clear; Color Urine Yellow; Glucose Urine UA Negative (Negative); Leukocyte Esterase Urine Trace (Negative); Nitrite Urine Negative (Negative); UMIC TRIGGER UACC YES; Urine Blood Negative (Negative); Urine Ketones Negative (Negative); Urine Protein Negative (Neg-Trace)
[2022-07-29 13:30] VITALS: BP 168/88; PULSE 56; RESP 16; O2SAT 96
[2022-07-29 13:30] LABS: Bacteria Urine 4+ (None Seen); Hyaline Casts Urine 0-2 /LPF (0-2); Squamous Epithelial Cell Urine 0-2 /HPF (0-2); UACC Culture Trigger YES
[2022-07-29] MEDS: 0.9 % Sodium Chloride 1,000 ML 999 ML IV (15:32)
[2022-07-29] MEDS: cefTRIAXone sodium 1 GM in 0.9 % Sodium Chloride 50 ML IV (15:33)
[2022-07-29 16:19] VITALS: BP 180/95; PULSE 62; RESP 16; TEMP 36.9; O2SAT 97
== END 2022-07-29 16:20 | disposition home or self-care (01) ==
PROVIDERS: Physician Assistant; Emergency Provider Emergency Medicine
DX: F07.81 Postconcussional syndrome (principal); N39.0 Urinary tract infection, site not specified; H53.8 Other visual disturbances; R94.31 Abnormal electrocardiogram [ECG] [EKG]; R53.1 Weakness; Z79.899 Other long term (current) drug therapy
CPT/HCPCS: 36415; 70450; 71045; 80053; 81001; 82550; 83605; 83735; 84484; 85025; 85652; 86140; 87040; 87086; 87088; 87186; 93005; 96374; 99284; J0696

== ENCOUNTER 2022-09-19 09:43 | Outpatient (REF) | payer MEDICARE, MEDICAID, SELFPAY ==
[2022-09-19 12:32] LABS: Thyroid Stimulating Hormone 1.79 uIU/mL (0.32-4.0)
[2022-09-19 13:06] LABS: Lactate Dehydrogenase 290 U/L (122-220)
== END 2022-09-19 09:44 | disposition home or self-care (01) ==
LOC: HO.HHCL 09:43
PROVIDERS: Visit Provider General Practice
DX: R63.0 Anorexia (principal); T48.205D Adverse effect of unspecified drugs acting on muscles, subsequent encounter
CPT/HCPCS: 36415; 82550; 83615; 84443

== ENCOUNTER 2022-10-06 10:07 | Outpatient (REF) | payer MEDICARE, MEDICAID, SELFPAY ==
[2022-10-06 11:53] LABS: Alanine Aminotransferase 13 U/L (0-31); Alkaline Phosphatase 72 U/L (39-117); Anion Gap 8 (12-20); Aspartate Amino Transferase 19 U/L (5-31); Bilirubin Total 0.4 mg/dL (0.0-1.0); Blood Urea Nitrogen 10 mg/dL (9-16); Calcium 9.4 mg/dL (8.4-10.2); Carbon Dioxide 27 mmol/L (22-29); Chloride 108 mmol/L (96-108); Estimated Glomerular Filt Rate > 60; Glucose Random 106 mg/dL (60-115); Lactate Dehydrogenase 238 U/L (122-220); Potassium 3.9 mmol/L (3.3-5.1); Sodium 139 mmol/L (135-145); Total Protein 7.6 g/dL (6.5-8.0)
== END 2022-10-06 10:08 | disposition home or self-care (01) ==
LOC: HO.HHCL 10:07
PROVIDERS: Visit Provider Internal Medicine
DX: R74.8 Abnormal levels of other serum enzymes (principal)
CPT/HCPCS: 36415; 80053; 82550; 83615

== ENCOUNTER 2023-01-11 14:30 | Outpatient (RCR) | payer MEDICARE, MEDICAID, SELFPAY | END 2023-02-17 13:32 | disposition home or self-care (01) | LOC: HO.OT 14:30 | PROVIDERS: PCP Internal Medicine; Visit Provider Internal Medicine | DX: M79.641 Pain in right hand (principal); M79.642 Pain in left hand | CPT/HCPCS: 29125; 97110; 97140; 97166; 97760 ==

== ENCOUNTER 2023-01-18 09:40 | Outpatient (AMB) | payer MEDICARE, MEDICAID, SELFPAY ==
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
[2023-01-18 09:44] VITALS: BP 158/84; PULSE 68; BMI 24.2
== END 2023-01-18 10:46 | disposition home or self-care (01) ==
PROVIDERS: Visit Provider Nurse Practitioner
DX: K21.9 Gastro-esophageal reflux disease without esophagitis (principal); Z01.818 Encounter for other preprocedural examination; R10.32 Left lower quadrant pain; R11.0 Nausea; R10.13 Epigastric pain; F40.231 Fear of injections and transfusions
CPT/HCPCS: 99203

== ENCOUNTER → 2023-01-18 09:40 | Outpatient (BNVA) | payer MEDICARE, MEDICAID, SELFPAY | PROVIDERS: Visit Provider Nurse Practitioner | DX: Z01.818 Encounter for other preprocedural examination (principal); R10.32 Left lower quadrant pain; R11.0 Nausea; R10.13 Epigastric pain; K21.9 Gastro-esophageal reflux disease without esophagitis; F40.231 Fear of injections and transfusions | CPT/HCPCS: 99202 ==

== ENCOUNTER 2023-05-25 09:12 | Day surgery (SDC) | payer OTHER, SELFPAY ==
[2023-05-22 14:50] VITALS: BMI 24.3
[2023-05-25 09:41] VITALS: BP 149/92; PULSE 67; RESP 20; TEMP 37.1; O2SAT 96; BMI 24.7
[2023-05-25] MEDS: Lactated Ringers 1,000 ML 100 ML IVCONT (09:56)
--- NOTE | 2023-05-25 10:45 | P.CONAN_ITS ---
Documented by User: Yohana Churchill NP 05/24/23 09:51 HPI - Anesthesia Eval Consult details Narrative: 68yo F for Colonoscopy PMFSH Active Problems Active Problems: All Active Problems Severe needle phobia (Acute) Epigastric pain (Acute) Nausea (Acute) LLQ pain (Acute) Pre-op examination (Acute) Helicobacter pylori gastritis (Acute) Urinary, incontinence, stress female (Acute) GERD (gastroesophageal reflux disease) (Acute) Chronic low back pain (Acute) Depression with anxiety (Acute) Benzodiazepine dependence (Acute) Abnormal gait (Acute) Memory impairment (Acute) History of head injury (Acute) Marijuana use (Acute) Sacroiliitis (Acute) Lumbar spondylosis (Acute) Other and unspecified hyperlipidemia (Acute) Essential hypertension (Acute) RBBB (Acute) SOB (shortness of breath) (Acute) Precordial chest pain (Acute) Patellofemoral arthralgia of both knees (Acute) Past Medical History Medical History (Updated 05/22/23 @ 14:51 by Thais Fang RN) Elevated cholesterol Precordial chest pain RBBB (right bundle branch block) Back pain GERD (gastroesophageal reflux disease) Severe needle phobia Anxiety Depression HTN (hypertension) Patellofemoral arthralgia of both knees Family History Family History Father No problems noted. Mother No problems noted. Surgical History Surgical History (Updated 05/22/23 @ 14:48 by Thais Fang RN) H/O colonoscopy History of dental surgery Social History Social History Alcohol intake: never Patient Tobacco Use Status: Never used Tobacco Substance Use Type: Marijuana Are you DNR?: No Advance Directives: No Advance Directives Information Provided: Yes Recently lost weight without trying: No Nutrition Risks: No Nutritional Risk Meds Allergies Allergy/AdvReac Type Severity Reaction Status Date / Time ibuprofen Allergy Rash Verified 05/25/23 07:26 Home Medications ?Medication ?Instructions ?Recorded ?Confirmed ?Last Taken ?Type albuterol sulfate 90 mcg/actuation 2 puff PO Q4-6H PRN Shortness Of 12/31/20 05/22/23 Unknown History aerosol inhaler (ProAir HFA) Breath atorvastatin 40 mg tablet 40 mg PO DAILY 12/31/20 05/22/23 Unknown History cholecalciferol (vitamin D3) 25 25 mcg PO DAILY 12/31/20 05/22/23 Unknown History mcg (1,000 unit) tablet clonazepam 1 mg tablet 1 mg PO TID 12/31/20 05/22/23 Unknown History hydrochlorothiazide 25 mg tablet 25 mg PO DAILY 12/31/20 05/22/23 Unknown History latanoprost 0.005 % eye drops 1 drp ophthalmic (eye) QPM 12/31/20 05/22/23 Unknown History polyethylene glycol 3350 17 17 g PO DAILY 12/31/20 05/22/23 Unknown History gram/dose oral powder buspirone 15 mg tablet 15 mg PO DAILY 01/18/23 05/22/23 Unknown History calcium carbonate 600 mg calcium 600 mg PO DAILY 01/18/23 05/22/23 Unknown History (1,500 mg) tablet escitalopram oxalate 20 mg tablet 20 mg PO DAILY 01/18/23 05/22/23 Unknown History fluticasone propionate 110 2 puff inhalation BID 01/18/23 05/22/23 Unknown History mcg/actuation HFA aerosol inhaler (Flovent HFA) losartan 100 mg tablet 100 mg PO DAILY 01/18/23 05/22/23 Unknown History omeprazole 20 mg capsule,delayed 20 mg PO BID 01/18/23 05/22/23 Unknown History release Exam Height,Weight and Vital Signs: Height 5 ft 5 in Weight 66.224 kg Assessment and Plan Assessment Anesthesia Assessment: Chart Reviewed Documented by User: Chely Barahona DO 05/25/23 10:49 [facility] Past Medical History Medical History (Updated 05/22/23 @ 14:51 by Thais Fang RN) Elevated cholesterol Precordial chest pain RBBB (right bundle branch block) Back pain GERD (gastroesophageal reflux disease) Severe needle phobia Anxiety Depression HTN (hypertension) Patellofemoral arthralgia of both knees Family History Family History Father No problems noted. Mother No problems noted. Family history of problems with anesthesia: No Surgical History Surgical History (Updated 05/22/23 @ 14:48 by Thais Fang RN) H/O colonoscopy History of dental surgery History of Problems with Anesthesia: No Social History Social History Alcohol intake: never Patient Tobacco Use Status: Never used Tobacco Substance Use Type: Marijuana Are you DNR?: No Advance Directives: No Advance Directives Information Provided: Yes Recently lost weight without trying: No Nutrition Risks: No Nutritional Risk Meds Allergies Allergy/AdvReac Type Severity Reaction Status Date / Time ibuprofen Allergy Rash Verified 05/25/23 07:26 Home Medications ?Medication ?Instructions ?Recorded ?Confirmed ?Last Taken ?Type albuterol sulfate 90 mcg/actuation 2 puff PO Q4-6H PRN Shortness Of 12/31/20 05/22/23 Unknown History aerosol inhaler (ProAir HFA) Breath atorvastatin 40 mg tablet 40 mg PO DAILY 12/31/20 05/22/23 Unknown History cholecalciferol (vitamin D3) 25 25 mcg PO DAILY 12/31/20 05/22/23 Unknown History mcg (1,000 unit) tablet clonazepam 1 mg tablet 1 mg PO TID 12/31/20 05/22/23 Unknown History hydrochlorothiazide 25 mg tablet 25 mg PO DAILY 12/31/20 05/22/23 Unknown History latanoprost 0.005 % eye drops 1 drp ophthalmic (eye) QPM 12/31/20 05/22/23 Unknown History polyethylene glycol 3350 17 17 g PO DAILY 12/31/20 05/22/23 Unknown History gram/dose oral powder buspirone 15 mg tablet 15 mg PO DAILY 01/18/23 05/22/23 Unknown History calcium carbonate 600 mg calcium 600 mg PO DAILY 01/18/23 05/22/23 Unknown Hist ory (1,500 mg) tablet escitalopram oxalate 20 mg tablet 20 mg PO DAILY 01/18/23 05/22/23 Unknown History fluticasone propionate 110 2 puff inhalation BID 01/18/23 05/22/23 Unknown History mcg/actuation HFA aerosol inhaler (Flovent HFA) losartan 100 mg tablet 100 mg PO DAILY 01/18/23 05/22/23 Unknown History omeprazole 20 mg capsule,delayed 20 mg PO BID 01/18/23 05/22/23 Unknown History release Exam Exam Date and Time: May 25, 2023 1045 Height,Weight and Vital Signs: Height 5 ft 5 in Weight 66.224 kg Height 5 ft 5 in Weight 67.4 kg Vital Signs Temperature 98.8 F 05/25/23 09:41 Pulse Rate 67 05/25/23 09:41 Respiratory Rate 20 05/25/23 09:41 Blood Pressure 149/92 H 05/25/23 09:41 Pulse Oximetry 96 05/25/23 09:41 Oxygen Delivery Method Room Air 05/25/23 09:41 Temperature 98.8 F 05/25/23 09:41 Pulse Rate 67 05/25/23 09:41 Respiratory Rate 20 05/25/23 09:41 Blood Pressure 149/92 H 05/25/23 09:41 Pulse Oximetry 96 05/25/23 09:41 Oxygen Delivery Method Room Air 05/25/23 09:41 Airway Mallampati Class: I TM Dist: >3cm Neck ROM: Full Loose/Missing/Broken Teeth: Yes (multiple broken molars and several missing teeth) Heart: S1S2 Lungs: CTAB Assessment and Plan Assessment Anesthesia Assessment: Anesthesia Plan Discussed and Chart Reviewed Final Anesthetic Review Family History of Problems with Anesthesia: No History of Problems with Anesthesia: No NPO: Yes ASA Class: III Final Preanesthetic Review: No Changes in Pt Med Stat, Meds/Allgs Chart Reviewed, Consent Obtained/Reviewed and Anes Risks/Benef Reviewed Patient Risk: Low Procedure Risk: Low Anesthetic Plan Anesthetic Plan: MAC: and Agree w/ Assess. and Plan Disposition: Standard PACU
--- NOTE | 2023-05-25 11:05 | P.OP_ITS ---
Operative Note Operative Note Date of Service: 05/25/23 Narrative: Procedure: Colonoscopy Indication: Screening Endoscopist: Candida Guerrero MD Anesthesia Provider: Niecy Choudhury CRNA Anesthesia type: MAC Instrument: Olympus [id number]-H190L Consent: Indication, risks vs benefits, and alternatives were discussed with the patient who gave written informed consent to proceed. EKG, pulse, pulse oximetry and blood pressure were monitored throughout the procedure. Please see anesthesia flowsheet. Procedure: The patient was brought to the procedure room and placed in the left lateral decubitus position. IV medications were administered by the anesthesia provider in attendance. A digital rectal exam was performed which was normal. A distal attachment cap was affixed to the tip of the scope and the colonoscope was then inserted through the anus and advanced through the colon to the cecum at 75 cm,and terminal ileum. Appendiceal orifice and ileocecal valve were identified. Mucosa was carefully examined under high definition white light as the instrument was slowly withdrawn in a retrograde panoramic fashion. Retroflexion was performed in rectum. The procedure was not difficult. There were no immediate obvious complications. The quality of the prep was BBPS: 2+3+3 = adequate Withdrawal time 12 minutes. Limitations: No limitations. Findings: Mucosa: Normal to cecum and terminal ileum. Protruding lesions: * 2 sessile polyp of size 3-6 mm in transverse colon. Cold snare polypectomy was performed. The polyp was completely removed and retrieved. * Medium internal hemorrhoids without stigmata of recent bleeding. Excavated lesions: * Few scattered diverticula noted throughout the colon, including ascending colon. Impression: 1. Normal colon and terminal ileum mucosa 2. Total of 2 polyps removed 3. Internal hemorrhoids 4. Diverticulosis Recommendations: - Follow path results. - Repeat colonoscopy in 7-10 years if polyps are adenomas.
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
[2023-05-25 11:34] VITALS: BP 135/79; PULSE 64; RESP 16; TEMP 36.6; O2SAT 95
[2023-05-25 11:49] VITALS: PULSE 66; RESP 16; O2SAT 97
== END 2023-05-25 12:42 | disposition home or self-care (01) ==
PROVIDERS: Visit Provider Internal Medicine
PROC: 0DJD8ZZ Inspection of Lower Intestinal Tract, Via Natural or Artificial Opening Endoscopic (ICD-10-PCS; CPT 45378; principal; 2023-05-25 14:40)
DX: Z12.11 Encounter for screening for malignant neoplasm of colon (principal); D12.3 Benign neoplasm of transverse colon; K57.30 Diverticulosis of large intestine without perforation or abscess without bleeding; K64.8 Other hemorrhoids; K21.9 Gastro-esophageal reflux disease without esophagitis; I10 Essential (primary) hypertension; E78.00 Pure hypercholesterolemia, unspecified; I45.10 Unspecified right bundle-branch block; J45.909 Unspecified asthma, uncomplicated; R41.3 Other amnesia; M54.50 Low back pain, unspecified; G89.29 Other chronic pain; M25.562 Pain in left knee; M25.561 Pain in right knee; F40.231 Fear of injections and transfusions; F41.8 Other specified anxiety disorders; F13.20 Sedative, hypnotic or anxiolytic dependence, uncomplicated; Z87.828 Personal history of other (healed) physical injury and trauma; Z79.51 Long term (current) use of inhaled steroids; Z79.899 Other long term (current) drug therapy; Z88.6 Allergy status to analgesic agent
CPT/HCPCS: 45385; 88305; J1596; J2704

== ENCOUNTER → 2023-05-25 09:12 | Outpatient (BNV) | payer OTHER, SELFPAY | PROVIDERS: Visit Provider Internal Medicine | DX: Z12.11 Encounter for screening for malignant neoplasm of colon (principal); K63.5 Polyp of colon; K64.8 Other hemorrhoids; K57.90 Diverticulosis of intestine, part unspecified, without perforation or abscess without bleeding | CPT/HCPCS: 45385 ==

== ENCOUNTER 2023-07-13 12:36 | Outpatient (AMB) | payer OTHER, SELFPAY ==
[2023-07-13 12:38] VITALS: BP 148/85; PULSE 63; BMI 23.8
--- NOTE | 2023-07-13 12:38 | A.OFFVIS_ITS ---
Vital Signs 07/13/23 12:38 Height 5 ft 5 in Weight 142 lb 13.753 oz BMI 23.8 BP 148/85 H Blood Pressure Location Rt brachial Position Sitting Pulse 63 Intake Visit Reasons: S/P [place]; Dr. Guerrero Intake Note: Craina returns to in office follow up s/p Colonoscopy. CC: Patient reports not having to much appetite lately.She c/o nausea, dizziness, she also reports an episode of throwing up clear grape like balls about a month ago, abdominal bloating, and pelvic pain. Patient does not know the name of the medications she is currently taking. 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 She has a feeling of something bulging out in her left groin when she coughs and she will hold the area until it goes back in. This will be uncomfortable for a little bit and she fears that it will go back if she does not hold it. She is concerned about a possible hernia. She denies any blood in the stools. She does suffer occasional constipation but it is well resolved with MiraLax. She takes omeprazole twice a day for GERD and she feels this is well controlled; however, she does have episodes of frequent nausea with discomfort in the epigastric area that radiates to her head. She can not really describe the discomfort but causes her not to want to her be able to eat especially 1st thing in the morning. She does not out right vomit and she does not have dysphagia. She is fairly naive anesthesia or sedation but she has done well when she has b een sedated with gas for dental procedures because she has a fear of needles. Her asthma is well controlled and she denies any serious cardiac problems. There are no infectious disease problems. There is no known family history of colon cancer or polyps. Her sister had a small-bowel obstruction with perforation and unfortunately was to ceased Orders: Orders Colonoscopy - GI Use Only Today Z01.818 - Encounter for other preprocedural examination US abdomen complete Today R10.13 - Epigastric pain, R10.32 - Left lower quadrant pain, R11.0 - Nausea Medications: New sod picosulf-mag ox-citric ac 10 mg-3.5 gram- 12 gram/160 mL (Clenpiq) take first dose at 5-9PM evening before colonoscopy; 2nd dose the next day approximately 5 hrs before colonoscopy 160 ULTRASOUND OF THE ABDOMEN Not obtained COLONOSCOPY 05/25/23 Findings: Mucosa: Normal to cecum and terminal ileum. Protruding lesions: * 2 sessile polyp of size 3-6 mm in transverse colon. Cold snare polypectomy was performed. The polyp was completely removed and retrieved. * Medium internal hemorrhoids without stigmata of recent bleeding. Excavated lesions: * Few scattered diverticula noted throughout the colon, including ascending colon. Impression: 1. Normal colon and terminal ileum mucosa 2. Total of 2 polyps removed 3. Internal hemorrhoids 4. Diverticulosis Recommendations: - Follow path results. - Repeat colonoscopy in 7-10 years if polyps are adenomas. BIOPSY Received: 05/25/23 Diagnosis Colon, transverse, polyps: Tubular adenoma (1 piece); negative for high-grade dysplasia and carcinoma TODAY'S VISIT The procedure should be repeated in 5 years. The procedure was well tolerated. The results were explained and the patient is agreeable to the follow-up interval as stated. The bowel pattern has returned to normal. Education was provided to tell any 1st degree relatives about their findings to be sure that they are screened by age 45. Educated that they will be put on a recall list when it is time for their repeat scope but should they move out of state or away from the hospital they will need to remember along with their primary to repeat the procedure in a timely fashion to avoid any adverse complications. About 3 mos ago she was feeling sick and weak with nausea, and having dry heaves. She says she vomited up a lot of transparent balls hanging from long white sticks. She tried to pop them but they did not pop, she says she pulled on these and it felt like the lining of her mouth would come out. Then they went back in. She says she wants an EGD for this. I will order this for her c/o nausea, but I can't help but wonder if the patient has some semi delusional disorder as we continue to discuss her health. She also wants us to look from her mouth all the way down indicating her groin area, but I try to explain why this is not possible. I remind her of the US I ordered last January, and that this would be the study to address her groin lump. She needs to look for radiology to call her and/or call them back to get this scheduled. ROV EGD. [facility] Medical History Elevated cholesterol Precordial chest pain RBBB (right bundle branch block) Back pain GERD (gastroesophageal reflux disease) Severe needle phobia Anxiety Depression HTN (hypertension) Patellofemoral arthralgia of both knees Surgical History H/O colonoscopy History of dental surgery Family History Father No problems noted. Mother No problems noted. Social History Alcohol intake: never Patient Tobacco Use Status: Never used Tobacco Substance Use Type: Marijuana Review of Systems Const Denies fatigue, Denies fever(s), Denies night sweats, Denies poor appetite and Denies weight loss ENT Reports Normal hearing present, Denies dental pain, Denies dysphagia, Denies hearing loss, Denies mouth pain, Denies odynophagia, Denies throat swelling, Denies tongue swelling and Reports other (Dentition adequate) Card Reports no additional complaints Resp Reports no additional complaints GI Details: Denies abdominal pain, Denies melena, Denies bloating, Denies hematochezia, Denies constipation, Denies GI cramping, Denies dysphagia, Denies excessive fla tus, Denies early satiety, Reports heartburn, Denies diarrhea, Reports nausea, Denies odynophagia, Denies vomiting and Denies hematemesis Skin/Breast Denies pruritus, Denies lesions, Denies rash and Denies jaundice Neuro Reports Normal hearing present and Denies Abnormal speech present Psych Reports anxiety Endo Denies fatigue Aller/Immun Denies throat swelling and Denies tongue swelling Physical Exam Vital Signs: Last Vital Signs Pulse 63 07/13/23 12:38 BP 148/85 H 07/13/23 12:38 BMI result Body Mass Index 23.8 Const General: cooperative, no acute distress, well developed and well groomed Nutritional Appearance: average body habitus and well nourished Orientation/consciousness: oriented to person, oriented to place and oriented to time Limitations: language barrier and other limitations HEENT Head: Yes normocephalic and Yes atraumatic Eyes General: appearance normal, both eyes and all related structures Pupils: Equal, round and reactive pupils present Neck Neck: Yes normal visual inspection and Yes no lymphadenopathy Thyroid: Thyroid normal Resp Effort & Inspection: normal respiratory effort and able to speak in complete sentences Auscultation: clear to auscultation bilaterally Cardio Rate: regular rate Rhythm: regular rhythm Heart sounds: Normal, physiologic split S2 sound present Peripheral pulses: radial pulses present and posterior tibial pulses present GI Inspection: No distended and No Abdominal panniculus present Palpation (GI): Soft to palpation, nontender, no guarding, not rigid and No hepatosplenomegaly present Percussion: Yes normal to percussion Auscultation: normal bowel sounds Rectal Exam - Female: deferred Skin General skin exam: no rashes or lesions noted, turgor normal, skin not dry, no jaundice, No spider nevi and no striae Rashes: no rashes Nails: normal Neuro General: oriented to person, oriented to place and oriented to time Cranial nerves: Yes Equal, round and reactive pupils present and Yes Normal hearing present Speech: No Abnormal speech present Extrem General: Yes normal to inspection, No clubbing, No cyanosis and No edema Psych Appearance: grossly normal and well kempt Mental Status: mental status grossly normal Speech and movement: Normal speech and movement present Affect: normal affect Attitude: cooperative Thought process: Normal thought process present and not confabulating Thought content: Normal thought content present Insight: Poor insight present (Psych) Judgement: Poor judgement present (Psych) Assessment & Plan Assessment & Plan (1) Tubular adenoma of colon: Comment: 2023 SCOPE= 1 TA REPEAT 5 YEARS Code(s): D12.6 - Benign neoplasm of colon, unspecified Category: Medical (2) GERD (gastroesophageal reflux disease): Code(s): K21.9 - Gastro-esophageal reflux disease without esophagitis Category: Medical (3) Benzodiazepine dependence: Code(s): F13.20 - Sedative, hypnotic or anxiolytic dependence, uncomplicated Category: Medical (4) Groin lump: Code(s): R19.09 - Other intra-abdominal and pelvic swelling, mass and lump Category: Medical (5) Epigastric pain: Code(s): R10.13 - Epigastric pain Category: Medical (6) Pre-op examination: Code(s): Z01.818 - Encounter for other preprocedural examination Category: Medical Plan The procedure should be repeated in 5 years. The procedure was well tolerated. The results were explained and the patient is agreeable to the follow-up interval as stated. The bowel pattern has returned to normal. Education was provided to tell any 1st degree relatives about their findings to be sure that they are screened by age 45. Educated that they will be put on a recall list when it is time for their repeat scope but should they move out of state or away from the hospital they will need to remember along with their primary to repeat the procedure in a timely fashion to avoid any adverse complications. About 3 mos ago she was feeling sick and weak with nausea, and having dry heaves. She says she vomited up a lot of transparent balls hanging from long white sticks. She tried to pop them but they did not pop, she says she pulled on these and it felt like the lining of her mouth would come out. Then they went back in. She says she wants an EGD for this. I will order this for her c/o nausea, but I can't help but wonder if the patient has some semi delusional disorder as we continue to discuss her health. She also wants us to look from her mouth all the way down indicating her groin area, but I try to explain why this is not possible. I remind her of the US I ordered last January, and that this would be the study to address her groin lump. She needs to look for radiology to call her and/or call them back to get this scheduled. ROV EGD. Orders: Orders EGD with [facility] - GI Use Only Today R10.13 - Epigastric pain US abdomen complete Today R19.09 - Other intra-abdominal and pelvic swelling, mass and lump Coding Level of Care Code Est Pt Level 4 (72956) Diagnoses Tubular adenoma of colon D12.6 GERD (gastroesophageal reflux disease) K21.9 Benzodiazepine dependence F13.20 Groin lump R19.09 Epigastric pain R10.13 Pre-op examination Z01.818
== END 2023-07-13 13:18 | disposition home or self-care (01) ==
PROVIDERS: Visit Provider Nurse Practitioner
DX: D12.6 Benign neoplasm of colon, unspecified (principal); K21.9 Gastro-esophageal reflux disease without esophagitis; F13.20 Sedative, hypnotic or anxiolytic dependence, uncomplicated; R19.09 Other intra-abdominal and pelvic swelling, mass and lump; R10.13 Epigastric pain; Z01.818 Encounter for other preprocedural examination
CPT/HCPCS: 99214

== ENCOUNTER → 2023-07-13 12:36 | Outpatient (BNVA) | payer OTHER, SELFPAY | PROVIDERS: Visit Provider Nurse Practitioner | DX: Z01.818 Encounter for other preprocedural examination (principal); D12.6 Benign neoplasm of colon, unspecified; R19.09 Other intra-abdominal and pelvic swelling, mass and lump; K21.9 Gastro-esophageal reflux disease without esophagitis; R10.13 Epigastric pain; F13.20 Sedative, hypnotic or anxiolytic dependence, uncomplicated | CPT/HCPCS: 99212 ==

== ENCOUNTER 2023-07-26 13:25 | Outpatient (REF) | payer OTHER, SELFPAY ==
--- NOTE | ~2023-07-26 | MM_ITS ---
EXAMINATION: BONE DENSITOMETRY CLINICAL INDICATION: Menopause. COMPARISON: This is the patient's baseline examination. TECHNIQUE: Using a Gobbler DXA System (software version: 13.1) manufactured by [employer], dual-energy x-ray absorptiometry was performed of the lumbar spine and left hip. The images are of good technical quality. Summary results are attached. FINDINGS: LEFT FEMUR, NECK: BMD 1.042 g/cm2, Z-score 1.5, T-score 0.0, normal. LEFT FEMUR, TOTAL: BMD 1.083 g/cm2, Z-score 1.8, T-score 0.6, normal. AP SPINE L1-L4 (excluding L3): The data of L1-L4 has been changed to exclude the L3 vertebral body, because degenerative sclerosis at this level may cause overestimation of lumbar spine density. BMD 1.41 g/cm2, Z-score 3.6, T-score 2.0, normal. IDENTIFIED RISK FACTORS: Early menopause, low calcium intake, secondary osteoporosis, thiazide. HISTORY OF FRACTURE: None listed. MEDICATIONS: Calcium, vitamin D. MM/XR DEXA axial skeleton IMPRESSION: 1. DIAGNOSIS: Normal bone density based on the lowest T-score value of 0.0 in the femoral neck applying World Health Organization criteria. 2. 10-YEAR FRACTURE RISK PREDICTION, FRAX: According to the guidelines, FRAX calculation should only be performed on patients in the osteopenia bone density category. Therefore, FRAX was not performed on this patient. 3. Treatment Recommendations: NOF guidelines recommend consideration for treatment in postmenopausal women and men age 50 and older presenting with the following: -A hip or vertebral (clinical or morphometric) fracture. -T-score less than or equal to -2.5 at the femoral neck or spine after appropriate evaluation to exclude secondary causes. -Low bone mass at the hip or spine and a 10-year fracture probability by FRAX of greater than or equal to 3% for hip fracture or greater than or equal to 20% for major osteoporotic fracture based on the US adapted WHO algorithm. 4. Other Recommendations: All treatment decisions require clinical judgment and consideration of individual patient factors, including patient preferences, comorbidities, previous drug use, risk factors not captured in the FRAX model (e.g. frailty, falls, vitamin D deficiency, increased bone turnover, interval significant decline in bone density) and possible under or overestimation of fracture risk by FRAX. FUTURE SCAN RECOMMENDATION: People with diagnosed cases of osteoporosis or at high risk for fracture should have regular bone mineral density tests. For patients eligible for Medicare, routine testing is allowed once every 2 years. The testing frequency can be increased to one year for patients who have rapidly progressing disease, those who are receiving or discontinuing medical therapy to restore bone mass, or have additional risk factors.
== END 2023-07-26 13:26 | disposition home or self-care (01) ==
LOC: HO.MAMMO 13:25
PROVIDERS: PCP Internal Medicine; Visit Provider Internal Medicine
DX: Z12.31 Encounter for screening mammogram for malignant neoplasm of breast (principal); Z13.820 Encounter for screening for osteoporosis; Z78.0 Asymptomatic menopausal state
CPT/HCPCS: 77063; 77067; 77080

== ENCOUNTER → 2023-07-26 14:00 | Outpatient (BNV) | payer OTHER, SELFPAY | PROVIDERS: PCP Internal Medicine; Visit Provider Radiology Diagnostic Radiology | DX: Z12.31 Encounter for screening mammogram for malignant neoplasm of breast (principal) | CPT/HCPCS: 77063; 77067 ==

== ENCOUNTER 2023-08-09 13:58 | Outpatient (REF) | payer OTHER, SELFPAY ==
--- NOTE | ~2023-08-09 | US_ITS ---
EXAMINATION: ULTRASOUND LEFT INGUINAL SOFT TISSUES CLINICAL INFORMATION: Left groin pain and bulging sensation when coughing; question hernia. COMPARISON: None available. TECHNIQUE: Using a linear transducer with grayscale and color modalities, ultrasound examination is performed of the left inguinal region. FINDINGS: The cutaneous, subcutaneous, muscular and fascial planes are unremarkable. No hernia defect is seen. There is no mass or fluid collection. There are a few shotty, none pathologically enlarged lymph nodes. The largest measure 1.7 x 0.5 x 0.7 cm and 1.1 x 0.6 x 0.6 cm, with normal architectural features. No sizable lymphadenopathy is seen. US/US pelvic limited IMPRESSION: Unremarkable examination.
== END 2023-08-09 13:59 | disposition home or self-care (01) ==
LOC: HO.US 13:58
PROVIDERS: PCP Internal Medicine; Visit Provider Nurse Practitioner
DX: R19.09 Other intra-abdominal and pelvic swelling, mass and lump (principal)
CPT/HCPCS: 76857

== ENCOUNTER 2023-10-25 09:20 | Outpatient (REF) | payer OTHER, SELFPAY ==
--- NOTE | ~2023-10-25 | US_ITS ---
EXAMINATION: US ABDOMEN COMPLETE CLINICAL INFORMATION: Upper abdominal pain, rule out cholecystitis. COMPARISON: None available. TECHNIQUE: Real-time imaging of the abdominal viscera. FINDINGS: PANCREAS: Normal. ABDOMINAL AORTA: Atherosclerotic change seen in the aorta without aneurysm. INFERIOR VENA CAVA: Visualized portions are normal. LIVER: The liver is normal in size. The liver contour is normal. There is diffuse increased liver parenchymal echogenicity, consistent with hepatic steatosis. No focal hepatic lesion. There is no intrahepatic biliary duct dilatation seen. GALLBLADDER: Normal. The gallbladder is physiologically distended without evidence of stones, sludge, polyps, wall thickening or pericholecystic fluid. COMMON BILE DUCT: Normal in caliber measuring 0.6 cm in diameter. RIGHT KIDNEY: No hydronephrosis. No renal calculi or focal parenchymal lesions. The kidney measures 10.7 cm in maximum dimension. LEFT KIDNEY: A benign mid renal 1.6 cm Bosniak class I renal cyst is noted which requires no additional imaging or follow up. No solid renal masses are seen. No hydronephrosis or renal calculi. The kidney measures 10.6 cm in maximum dimension. SPLEEN: Normal. The spleen measures 9.5 cm in maximum dimension. FREE FLUID: None. US/US abdomen complete IMPRESSION: Hepatic steatosis. A cause for the patient's upper abdominal pain is not seen and no gallbladder disease is detected. Electronically signed by: Thomas Garza MD 11/01/2023 02:10 PM EDT
== END 2023-10-25 09:21 | disposition home or self-care (01) ==
LOC: HO.US 09:20
PROVIDERS: PCP Internal Medicine; Visit Provider Internal Medicine
DX: R10.10 Upper abdominal pain, unspecified (principal)
CPT/HCPCS: 76700

== ENCOUNTER 2023-11-09 08:58 | Outpatient (REF) | payer OTHER, SELFPAY ==
[2023-11-09 11:29] LABS: MANUAL DIFF FLAG NO
[2023-11-09 11:58] LABS: Basophils Percent Auto 0.6 % (0-2); Eosinophils Absolute Auto 0.1 X10*3/uL (0.0-0.4); Eosinophils Percent Auto 0.8 % (0-4); Hemoglobin 14.6 g/dl (12.0-16.0); Imm Gran Abs Auto 0.02 X10*3/uL (0.00-0.03); Imm Gran Pct Auto 0.3 % (0.0-0.4); Lymphocytes Percent Auto 32.3 % (20-40); Mean Corpuscular Hemoglobin 31.1 pg (27.0-33.0); Mean Corpuscular Volume 91.5 fL (80.0-98.0); Mean Platelet Volume 10.7 fL (9.4-12.3); Monocytes Absolute Auto 0.4 X10*3/uL (0.1-1.2); Monocytes Percent Auto 5.9 % (2-11); Neutrophils Absolute Auto 3.8 x10*3/uL (2.0-8.3); Neutrophils Percent Auto 60.1 % (45-73); Platelet Count 274 X10*3/uL (160-400); Red Cell Distribution Width 13.2 % (11.0-16.0); White Blood Count 6.3 X10*3/uL (4.8-10.8)
[2023-11-09 12:15] LABS: Estimated Average Glucose 123 mg/dL; Hemoglobin A1c % 5.9 % (<6.0)
[2023-11-09 12:19] LABS: Alanine Aminotransferase 15 U/L (0-31); Albumin Level 4.1 g/dL (3.5-5.0); Alkaline Phosphatase 78 U/L (39-117); Anion Gap 15 (12-20); Aspartate Amino Transferase 22 U/L (5-31); Bilirubin Direct 0.1 mg/dL (0.0-0.5); Bilirubin Total 0.4 mg/dL (0.0-1.0); Blood Urea Nitrogen 11 mg/dL (9-16); Calcium 10.1 mg/dL (8.4-10.2); Carbon Dioxide 24 mmol/L (22-29); Chloride 105 mmol/L (96-108); Cholesterol 249 mg/dL (<200); Estimated Glomerular Filt Rate > 60; Glucose Random 97 mg/dL (60-115); HDL Cholesterol 43 mg/dL (>40); LDL Cholesterol Calculated 150 mg/dL (<100); Sodium 140 mmol/L (135-145); Triglycerides 280 mg/dL (<150)
[2023-11-09 12:33] LABS: TSH reflex Free T4 2.72 uIU/mL (0.32-4.0)
[2023-11-09 12:42] LABS: HIV AB/AG Nonreactive (Nonreactive); HIV Num 1 0.04 S/CO (0.00-0.99)
[2023-11-09 12:44] LABS: Syphilis Screen Nonreactive (Nonreactive)
[2023-11-09 12:47] LABS: Folate 13.2 ng/mL (> or = 4.0); Vitamin B12 558 pg/mL (200-900)
== END 2023-11-09 08:59 | disposition home or self-care (01) ==
LOC: HO.HHCL 08:58
PROVIDERS: PCP Student in an Organized Health Care Education/Training Program; Visit Provider Internal Medicine
DX: Z00.00 Encounter for general adult medical examination without abnormal findings (principal); R41.3 Other amnesia; Z13.1 Encounter for screening for diabetes mellitus
CPT/HCPCS: 36415; 80048; 80061; 80076; 82607; 82746; 83036; 84443; 85025; 86780; 87389

== ENCOUNTER 2024-01-06 08:35 | Outpatient (REF) | payer OTHER, SELFPAY ==
--- NOTE | ~2024-01-06 | MR_ITS ---
EXAMINATION: MR BRAIN WITHOUT CONTRAST CLINICAL INFORMATION: Worsening memory loss. COMPARISON: CT head from 07/29/2022. TECHNIQUE: MRI of the brain was obtained using routine sequences without contrast. FINDINGS: No focal restricted diffusion is demonstrated to suggest acute or subacute cerebral ischemia. No evidence of acute or chronic hemorrhagic products on heme-sensitive imaging. Scattered periventricular and deep white matter T2 FLAIR hyperintensities consistent with mild underlying microangiopathy. The ventricles are normal in morphology and size. No abnormal mass effect. No midline shift. Normal appearance of the pituitary gland. Normal positioning of the cerebellar tonsils. Normal arterial and venous vascular flow voids are present. Normal, homogeneous marrow signal. Mild mucosal thickening of the paranasal sinuses. No signal abnormalities within the mastoids. Bilateral lens extractions. MR/MR head/brain wo con IMPRESSION: 1. No acute intracranial abnormalities. 2. Mild underlying microangiopathy. Electronically signed by: Devante Weinberg DO 01/24/2024 08:12 AM RIGOBERTO
== END 2024-01-06 08:36 | disposition home or self-care (01) ==
LOC: HO.MRI 08:35
PROVIDERS: PCP Internal Medicine; Visit Provider Student in an Organized Health Care Education/Training Program
DX: R41.3 Other amnesia (principal)
CPT/HCPCS: 70551

== ENCOUNTER 2024-05-23 12:59 | Outpatient (REF) | payer OTHER, SELFPAY ==
--- NOTE | ~2024-05-23 | XR_ITS ---
EXAMINATION: XR LUMBOSACRAL SPINE CLINICAL INFORMATION: LBP radiated to both legs COMPARISON: None available. TECHNIQUE: Three views of the lumbosacral spine. FINDINGS: There is normal lumbar lordosis. There is abnormal segmentation lumbar vertebrae with short T12 bilateral ribs There is grade 1 anterolisthesis L4 over L5 and L5 over S1. Loss of L5-S1 disc height is seen. Moderate to significant facet arthropathy seen at the L5-S1 and mild facet joint arthropathy at L4-5 disc levels. There is short bilateral L1 ribs XR/XR lumbar spine 2-3V IMPRESSION: Grade 1 anterolisthesis L5 over S1 with loss of L5-S1 disc height. The bilateral short L1 ribs. No major change from previous exam 09/22/2021. Electronically signed by: Ludwin Loja MD 05/23/2024 01:41 PM EDT
--- OUTSIDE RECORDS SUMMARY | 2024-05-23 15:38 | XMS_ITS | Encounter Summary ---
Author Organization [employer] Address [address] [place] [address] Care Team Providers Care Sap Bpc Developer Name Role Phone Noemi Aguirre MD Primary Care Provide r Reason for Visit * Reason Onset Date Comments PT-1 02/20/2024 Encounter Details Date Type Department Care Team ([facility] st Contact Info) Description 02/20/2024 Telephone [facility] [address] [place], [place] [phone] Noemi Aguirre MD [address] [place], [place] [phone] PT-1 Social History Tobacco Use Types Packs/Day Years Used Date Smoking Tobacco: Never Passive Smoke Exposure: Never Smokeless Tobacco: Never Alcohol Use Standard Drinks/Week Comments Never 0 (1 standard drink = 0.6 oz pur e alcohol) Depression Answer Date Recorded Patient Health Questionnaire-9 Score 14 01/16/2024 Patient Health Questionnaire-9 Score 14 01/16/2024 Last PHQ-9: Questionnaire Data Not on file 1 03/18/2023 Housing Stability Answer Date Recorded What is your housing situation today? I have ted poon 11/28/[address] you li ve. Do you have problems with any of the following? I am not sure 11/28/2022 Food Insecurity Answer Date Recorded Within the past 12 months, y ou worried that your food would run out before you got money to buy more: Never True 11/28/2022 Within the past 12 months,th e food you bought just didn't last and you didn't have enough money to get more: Never True Transportation Answer Date Recorded In the past 12 months, has l ack of transportation kept you from medical appts, meetings, work or from getting things needed for daily living? No 11/28/2022 Utilities Answer Date Recorded In the past 12 months, has t he electric, gas, oil or water company threatened to shut off services in your home? No 11/28/2022 Depression Answer Date Recorded Patient Health Questionnaire-2 Score 4 01/16/2024 Comments Unknown Sex and Gender Information Value Date Recorded Sex Assigned at Female 12/13/2021 10:21 AM EDT Legal Sex Female 10:21 AM EDT Gender Identity Female 12/13/2021 10:21 AM EDT Sexual Orientation Choose not to disclose 2021 10:21 AM EDT documented as of this encounter Miscellaneous Notes * Telephone Encounter - Lakhwinder Desai - 02/20/2024 1:28 PM EST Patient calling requesting PT1 Home Address verified: Y/N: Yes Provider name or facility name: [facility] [address], [place] [address] Escort needed: Y/N: No Do you have a wheelchair: Y/N: No If yes- Manual or electric: Visits: (3 x Year) documented in this encounter Plan of Treatment Not on file documented as of this encounter Visit Diagnoses Not on filedocumented in this encounter Additional Health Concerns Assessment Noted Time PHQ-9 Depression Total Score: 14 024 9:36 AM EST documented as of this encounter Care Teams Sap Bpc Developer Relationship Specialty Start Date End Date Noemi Aguirre MD [address] [place] [id number] PCP - General Family Medicine 10/25/17 [employer] 01/19/24 documented as of this encounter
--- OUTSIDE RECORDS SUMMARY | 2024-05-23 15:38 | XMS_ITS | Encounter Summary ---
Author Organization [employer] Address [address] [facility] [address] [place] [address] Care Team Providers Care Dip Brazier Name Role Phone Noemi Aguirre MD Primary Care Provide r Reason for Visit * Reason Comments Med Refill Encounter Details Date Type Department Care Team ([facility] st Contact Info) Description 11/28/2022 Refill [facility] [address] [place], [place] [phone] Noemi Aguirre MD [address] [place], [place] [phone] H. pylori infection Social History Tobacco Use Types Packs/Day Years Used Date Smoking Tobacco: Never Passive Smoke Exposure: Never Smokeless Tobacco: Never Alcohol Use Standard Drinks/Week Comments Never 0 (1 standard drink = 0.6 oz pur e alcohol) Housing Stability Answer Date Recorded What is [...] Answer Date Recorded Patient Health Questionnaire-2 Score 2 02/25/2022 Comments Unknown Sex and Gender Information Value Date Recorded Sex Assigned at Female 12/13/2021 10:21 AM EDT Legal Sex Female 10:21 AM EDT Gender Identity Female 12/13/2021 10:21 AM EDT Sexual Orientation Choose not to disclose 2021 10:21 AM EDT documented as of this encounter Plan of Treatment Not on file documented as of this encounter Visit Diagnoses Diagnosis H. pylori infection Helicobacter pylori (H. pylori) documented in this encounter Care Teams Dip Brazier Relationship Specialty Start Date End Date Noemi Aguirre MD [address] [place] [id number] PCP - General Family Medicine 10/25/17 [employer] 01/19/24 documented as of this encounter
--- OUTSIDE RECORDS SUMMARY | 2024-05-23 15:38 | XMS_ITS | Encounter Summary ---
Author Organization [employer] Address [address] [place] [address] Care Team Providers Care Sheet Rock Taper Name Role Phone Noemi Aguirre MD Primary Care Provide r Reason for Visit * Reason Onset Date Comments callback requested 02/08/2024 Encounter Details Date Type Department Care Team ([facility] st Contact Info) Description 02/08/2024 Telephone [facility] [address] [place], [place] [phone] Noemi Aguirre MD [address] [place], [place] [phone] callback requested Social History Tobacco Use Types Packs/Day Years [...] encounter Miscellaneous Notes * Telephone Encounter - Nedra Bernal RN - 02/09/2024 11:50 AM EST Latisha spoke to Clay ([facility]) in regards to below message. Clay reports he was in route to speak to [facility] in regards to patient concerns. [facility] would like to drop patients VNA services to once weekly however Clay does not feel this would be appropriate d/t patients cognitive issues. Soledad reports he provides patient's morning medications to her and watches her take them however thepatients CIRCUIT COURT JUDGE is supposed to give PM medications. Clya leaves them pre- packed however he found out the patient hasn't been taking her evening pills (they are pre-packed for her and CIRCUIT COURT JUDGE is supposedto remind her to take medication). When patient was asked why medications were still in pre-packed p lanner, patient confessed she has NOT been taking PM medications (patient has been stashing them in her apartment). Clay reports he is NOT concerned about her behaviors (denies visual or auditory hallucinations and denies any physical or verbal aggression) besides not taking PM medications. Clay is advocating with [facility] to ensure patient stays with daily VNA visits for medication administration. RN spoke to Marielena in regards to CIRCUIT COURT JUDGE portion who reports she will place a new referral to a different CIRCUIT [employer] JUDGE agency for the patient. Sending to PCP as FYI. * Telephone Encounter - Nedra Bernal RN - 02/08/2024 2:23 PM EST TC placed to Vy [phone]. Vy reports the patient currently receives CIRCUIT [facility] JUDGE services thru [facility] for 1 hour a day however they are going to discharge her from CIRCUIT [employer] JUDGE services. Per Vy, the patient has had 3-[address] in the last [address] JUDGE's are afraid of patient. Per Vy,the last CIRCUIT COURT JUDGE who went to the home went alone and the patient kept stating Where's the other lady that was with you? Tell her to come inside . Vy also reports the patient is currently in housing court as well because her neighbors have complained that her behaviors are disruptive. Vy reports the patient will need to be referred a different agency for CIRCUIT COURT JUDGE services. Vy reports the patients needs have increased d/t her memory problems and they are unable to accommodate those needs. Vy confirms the patient can continue to attend day program at [facility] daily 8am-noon. Patient also receives VNA services thru [facility]. RN called Latisha ([facility] liaison) to inquire if patientis still active with them. RN was informed she is and Clay ([facility]) visits her daily in AM. RN wasinformed Clay gives patient her AM medications and pre-fills PM medication box. Latisha reports she will inquire with [facility]NA if he is experiencing any issues with patient and will let us know tomorrow. Patient was recently seen on 01/16/24 for memory concerns and had brain MRI completed recently whichwas WNL. RN will send message to PCP as NORMA and to Marielena in forms to establish a new CIRCUIT COURT JUDGE provider. * Telephone Encounter - Bakari Reeves - 02/08/2024 10:37 AM EST Tc from Linette with [facility] requesting a callback to discuss pt mental health concerns [phone] documented in this encounter Plan of Treatment Not on file documented as of this encounter Visit Diagnoses Not on filedocumented in this encounter Additional Health Concerns Assessment Noted Time PHQ-9 Depression Total Score: 14 024 9:36 AM EST documented as of this encounter Care Teams Sheet Rock Taper Relationship Specialty Start Date End Date Noemi Aguirre MD [address] [place] [phone] PCP - General Family Medicine 10/25/17 [facility] 01/19/24 documented as of this encounter
--- OUTSIDE RECORDS SUMMARY | 2024-05-23 15:39 | XMS_ITS | Clinical Summary ---
Author Organization [facility] Address [address] [facility] [address] [place] [address] Care Team Providers Care Assistant Surveyor Name Role Phone Noemi Aguirre MD Primary Care Provide r Allergies No known active allergies Medications * This document contains information received from the source organization and may not represent a complete record from that organization. acetaminophen (Tylenol) 500 MG tablet Take 2 tablets by mouth in the morning and 2 tablets at noon and 2 tablets in the evening and 2 tablets before bedtime. 1 Active clonazePAM (KlonoPIN) 1 MG tablet TAKE 1 TABLET BY MOUTH TWICE DAILY AND MAY TAKE ADDITIONAL TABLET NEEDED FOR PANIC ATTACK 3 Active Diclofenac Sodium 1 % gel APPLY TO THE AFFECTED AREA(S) 4 GRAMS TOPICALLY FOUR TIMES DAILY 2 Active escitalopram (Lexapro) 20 MG tablet Take 20 mg by mouth in the morning. 3 Active latanoprost (Xalatan) 0.005 % ophthalmic solution PLACE 1 DROP IN EACH EYE AT BEDTIME 2 Active tiZANidine (Zanaflex) 2 MG tablet TAKE 1 TABLET BY MOUTH EVERY 6 TO 8 HOURS NEEDED. DO NOT EXCEED 3 DOSES IN 24 HOURS 3 Active trimethoprim-jh ymyxin b (Polytrim) ophthalmic solutionIndicati ons:Abrasion of left cornea, initial encounter Instill 1 drop left eye every 3 hours, max 6 doses a day for 10 days. 10 mL 3 Active prednisoLONE acetate (Pred-Forte) 1 % ophthalmic suspensionIndica tions:Uveitis of left eye Administer 1 drop into the left eye every 4 (four) hours. Shake bottle before using. 10 mL 3 Active Lumigan 0.01 % ophthalmic solution PLACE 1 DROP IN EACH EYE AT BEDTIME 3 Active busPIRone (Buspar) 7.5 MG tablet 3 Active Vyzulta 0.024 % solution 3 Active cholecalciferol 25 MCG tablet TAKE 1 TABLET BY MOUTH AT BEDTIME (supplement) 90 tablet 3 4 Active naproxen (Naprosyn) 500 MG tabletIndication s:Chronic bilateral low back pain without sciatica TAKE 1 TABLET BY MOUTH EVERY TWELVE HOURS NEEDED FOR PAIN 40 tablet 4 Active albuterol (2.5 MG/3ML) 0.083% nebulizer solutionIndicati ons:Moderate persistent asthma without complication Take 3 mL (2.5 mg) by nebulization every 6 (six) hours if needed for wheezing. 75 mL 4 Active lidocaine (Lidoderm) 5 % patchIndications :Chronic bilateral low back pain without sciatica APPLY 1-2 PATCHES TO SKIN EVERY DAY. MAY LEAVE ON FOR UP TO 12 HOURS THEN REMOVE FOR 12 HOURS 60 patch 2 4 Active Clenpiq 10-3.5-12 MG-GM -GM/175ML solution MIX DIRECTED AND DRINK 175 ML DAILY FOR 2 DOSES. TAKE THE FIRST DOSE BETWEEN 5-9 PM THE EVENING BEFORE THE COLONOSCOPY AND THE 2ND DOSE THE NEXT DAY 5 HOURS BEFORE 3 Active busPIRone (Buspar) 15 MG tablet 4 Active naproxen (Naprosyn) 500 MG tabletIndication s:Chronic bilateral low back pain without sciatica TAKE 1 TABLET BY MOUTH EVERY TWELVE HOURS NEEDED FOR PAIN 40 tablet 4 Active albuterol (Ventolin HFA) 108 (90 Base) MCG/ACT inhalerIndicatio ns:Moderate persistent asthma without complication INHALE 2 PUFFS BY MOUTH EVERY 4 TO 6 HOURS NEEDED FOR COUGH, FOR WHEEZING AND SHORTNESS OF BREATH 18 g 1 4 Active famotidine (Pepcid) 20 MG tabletIndication s:Upper abdominal pain Take 1 tablet (20 mg) by mouth 2 times daily. 60 tablet 11 4 025 Active buPROPion XL (Wellbutrin XL) 150 MG 24 hr tablet Take 150 mg by mouth in the morning. 4 Active albuterol (2.5 MG/3ML) 0.083% nebulizer solutionIndicati ons:Mild intermittent asthma, unspecified whether complicated INHALE 1 AMPULE USING A NEBULIZER EVERY 4 HOURS NEEDED FOR WHEEZING 90 mL 3 4 Active GaviLAX 17 GM/SCOOP powder TAKE 17 GM MIXED IN 8 OUNCES OF WATER, COFFEE OR TEA ONCE DAILY 510 g 1 4 Active polycarbophil (Fibercon) 625 MG tabletIndication s:Gastroesophage al reflux disease, unspecified whether esophagitis present Take 1 tablet (625 mg) by mouth 2 times daily. 60 tablet 3 4 025 Active omeprazole (PriLOSEC) [address] capsuleIndicatio ns:Gastroesophag eal reflux disease, unspecified whether esophagitis present TAKE 1 CAPSULE BY MOUTH TWICE DAILY IN THE MORNING AND AT BEDTIME 180 capsule 1 4 Active Simethicone (Gas-Ex) 125 MG tablet tabletIndication s:Gastroesophage al reflux disease, unspecified whether esophagitis present Take 1 tablet (125 mg) by mouth if needed in the morning, at noon, in the evening, and at bedtime (GAS/BLOATING). 120 tablet 3 4 Active Saccharomyces boulardii (probiotic) 250 MG capsuleIndicatio ns:Gastroesophag eal reflux disease, unspecified whether esophagitis present Take 1 capsule (250 mg) by mouth Once per day. 30 capsule 3 4 025 Active calcium carbonate 1500 (600 Ca) MG tablet TAKE 1 TABLET BY MOUTH TWICE DAILY IN THE MORNING AND IN THE EVENING WITH MEALS (supplement) 180 tablet 3 4 Active losartan (Cozaar) 100 MG tabletIndication s:Essential hypertension TAKE 1 TABLET BY MOUTH AT BEDTIME (HIGH BLOOD PRESSURE) 90 tablet 1 4 Active Mometasone Furoate (Asmanex HFA) 100 MCG/ACT aerosolIndicatio ns:Moderate persistent asthma without complication INHALE 2 PUFFS BY MOUTH TWICE DAILY. RINSE MOUTH AFTER USING. 13 g 1 4 Active hydroCHLOROthiaz regina (HYDRODiuril) 25 MG tablet TAKE 1 TABLET BY MOUTH EVERY MORNING 90 tablet 1 5 Active pravastatin (Pravachol) 20 MG tabletIndication s:Essential hypertension TAKE 1 TABLET BY MOUTH AT BEDTIME 90 tablet 5 Active Active Problems Patient Care Coordination No te Formatting of this note migh t be different from the original. C3/CM Lorna Solitario RN /[id number] Delphinejeannettepita Solorzano Problem Noted Date Diagnosed Date Abdominal pain 05/23/2024 Bilateral sciatica 05/23/2024 Bilateral leg pain 03/26/2024 Assessment & Plan (03/26/2024 3:22 PM EST): PT referral done today Dizziness 01/16/2024 Assessment & Plan (01/16/2024 12:12 PM EST): I advise proper hydration Change positions slowly I prescribed meclizine PRN Cognitive impairment 01/16/2024 Assessment & Plan (01/16/2024 12:12 PM EST): I will get results for MRI Patient has being refer in the past to neurology after results possible referral to neurology Labs reviewed with patient are normal VNA services will be arrange Upper abdominal pain 09/11/2023 Assessment & Plan (09/11/2023 4:52 PM EDT): I advise patient to avoid NSAIDs, spicy and acid food, I advise to eat at the same time every day, I advise to elevate the head of the bed and take medications as prescribe Bilateral wrist pain 09/11/2023 Assessment & Plan (09/11/2023 4:53 PM EDT): Likely carpel tunnel syndrome I will prescribe wrist braces Encounter for preventive health examination 05/15 Assessment & Plan (06/12/2023 10:06 AM EDT): See HPI Encounter for screening mamm ogram for malignant neoplasm of breast 06/12/2023 Asymptomatic menopause 06/12/2023 Elevated CK 10/05/2022 Assessment & Plan (10/06/2022 2:16 PM EDT): I agree to continue pravastatin and discontinue atorvastatin, patient will go to pharmacy with her boxes to make the arrangements Loss of appetite 09/19/2022 Assessment & Plan (09/19/2022 10:01 AM EDT): Dating to head strike approximately two months ago. Has other more classically associated post-concussive symptoms as well such as dizziness, nausea, confusion as well. ? Appetite loss could be a part of it - weight is stable at 144 pounds - no concerns for GI factors causing loss of appetite - will check TSH and LDH - recheck CK as that was elevated two months ago to ensure resolution Adverse effect of unspecifie d drugs acting on muscles, subsequent encounter 09/19/2022 Head trauma 06/10/2022 Bilateral hand pain 06/10/2022 Assessment & Plan (06/10/2022 4:26 PM EDT): OT referral done today Uveitis of left eye 04/28/2022 Helicobacter pylori gastritis 03/25/2022 Assessment & Plan (03/25/2022 10:49 AM EST): Treated Mixed stress and urge urinary incontinence 03/25 Assessment & Plan (06/10/2022 4:26 PM EDT): urology referral Prescription for briefs/pullups to be generated Assessment & Plan (03/25/2022 10:51 AM EST): r/o UTI and vaginal atrophy. Will schedule pap smear Gave information about Kegel's exercises start oxybutynin 5 mg and FU in 2 months Abnormal gait 03/08/2022 Assessment & Plan (03/26/2024 3:22 PM EST): I will prescribe roller walker with seat Patient will be referred to physical therapy Atypical chest pain 03/08/2022 Asthma 02/25/2022 Chronic low back pain 02/25/2022 Anxiety associated with depression 02/25/2022 Assessment & Plan (06/12/2023 10:05 AM EDT): Continue to follow with psychiatrist for medication adjustment I call N today for further counseling and guidance Assessment & Plan (02/25/2022 2:48 PM EST): Has MH team: prescriber Is Jhon Trinh and therapist is Ayla ([facility] Encouraged to take escitalopram daily + clonazepam, will try to titrate down to off. She feels safe at home and enjoys day program. She can reach out for safety. Referred to CM and med boxes to help with POC compliance Mild intermittent asthma 02/25/2022 Assessment & Plan (06/12/2023 10:03 AM EDT): Patient educated to avoid asthma triggers Patient has a nebulizer I refilled he albuterol solution Vomiting without nausea 02/25/2022 Assessment & Plan (02/25/2022 2:50 PM EST): GERD? Anxiety? Will order Upper GI series and labs and fu at next appt, may need GI referral. Gastroesophageal reflux disease 02/25/2022 Assessment & Plan (01/16/2024 12:14 PM EST): Patient being follow by GI she has upcoming appointment Refills today Assessment & Plan (03/25/2022 10:49 AM EST): Significantly improved s/p H. pylori treatment. Continue omeprazole BID to complete 2 months treatment. Assessment & Plan (02/25/2022 2:49 PM EST): Unclear if sxs are related to GERD or other condition. Order Upper GI Series to ro anatomical abn/obstruction Order H.lena Espinosa anemia. Vitamin D deficiency 07/04/2017 Benzodiazepine dependence, continuous 07/04/2017 Memory impairment 07/04/2017 Assessment & Plan (03/26/2024 3:23 PM EST): Patient still waiting for appointment with memory clinic I will track referral to help with process Assessment & Plan (01/16/2024 12:13 PM EST): VNA services will be arrange Pending MRI results possible again neurology referral Assessment & Plan (10/31/2023 7:59 PM EDT): BETH mahmood today is Studied primary courses no high school Normal neuro exam w no focalizing findings -ordered labs TSH,vit b12 folic acid and syphilis, HIV test + advised to have also labs ordered before by her PCP in 05/2023 -MRI brain w/o contrast ordered today -Advised to bring all pyshciatric meds to update in system at her next apt w PCP and to discuss w her psychiatrist of chronic meds that is taking as BZD that ideally should be taper down if possible to eval if that can be causing symptoms -pt 'niece to call to her insuance for VNA services -given CCA -advised pt to avoid muscle relaxants ,decrease marijuana as possible -to f w PCP to f lab results, images and consider to start donepezil as option if no other findings as possible Alzheimer vs neuro referral Assessment & Plan (10/06/2022 2:02 PM EDT): Neurology office was called and I found out she has had 4 no shows, I will put a new neurology referral in and also refer her to care management so that she does not miss next appointment because if she does she will be discharge from the practice Assessment & Plan (06/10/2022 4:27 PM EDT): Patient to be schedule for minimental test Multiple joint pain 07/04/2017 Essential hypertension 01/29/2016 Assessment & Plan (03/26/2024 3:22 PM EST): I advised: - Aerobic exercise to reduce BP. Initial goal of 30 min walk 3-5x/week. Increase as tolerated. - low-sodium diet (goal: <2g/day) and heart healthy diet such as DASH to reduce BP and prevent ASCVD. - Home BP monitoring 1-2 x day with goal of <140/90. - Seek immediate medical attention for chest pain, palpitations, SOB, syncope, or sudden changes in mental status. - Do not change or discontinue current prescriptions without first consulting health care provider Assessment & Plan (01/16/2024 12:10 PM EST): VNA services for medication administration and BP check I advise low Na diet and weight reduction C/w same medication regimen Assessment & Plan (09/11/2023 4:52 PM EDT): - Aerobic exercise to reduce BP. Initial goal of 30 min walk 3-5x/week. Increase as tolerated. - low-sodium diet (goal: <2g/day) and heart healthy diet such as DASH to reduce BP and prevent ASCVD. - Home BP monitoring 1-2 x day with goal of <140/90. - Seek immediate medical attention for chest pain, palpitations, SOB, syncope, or sudden changes in mental status. - Do not change or discontinue current prescriptions without first consulting health care provider Assessment & Plan (06/12/2023 10:05 AM EDT): Today blood pressure is high likely because she forgot her medication and is upset today but she tells me she feels like her blood pressure has also being high at home I advise to take her medications every day, low na diet RTC with nurse in 2 weeks if BP is not well control plan is to add amlodipine 5mg daily Assessment & Plan (10/06/2022 2:00 PM EDT): Today blood pressure elevated she came with her medboxes and wanted to show me which medications was she taking every day I advise to take her medications and to maintain a low Na diet Assessment & Plan (06/10/2022 4:25 PM EDT): - Aerobic exercise to reduce BP. Initial goal of 30 min walk 3-5x/week. Increase as tolerated. - low-sodium diet (goal: <2g/day) and heart healthy diet such as DASH to reduce BP and prevent ASCVD. - Home BP monitoring 1-2 x day with goal of <140/90. - Seek immediate medical attention for chest pain, palpitations, SOB, syncope, or sudden changes in mental status. -c/w hydrochlorothiazide 25 mg daily, I increase her losartan to 100mg daily - Do not change or discontinue current prescriptions without first consulting health care provider Assessment & Plan (03/25/2022 10:50 AM EST): BP is better controlled. Continue HCTZ 25 mg + Losartan 50 and encouraged compliance with medication Assessment & Plan (02/25/2022 2:51 PM EST): She hasn't taken meds today. She is not complaint with meds bc she forgets to take them I told her to take her meds once she gets home and check BP at home three times per week FU w me in 4w Order labs No change in meds Mood disorder 01/29/2016 Assessment & Plan (10/06/2022 2:02 PM EDT): Continue to follow with psychiatrist Resolved Problems Problem Noted Date Diagnosed Date Resolved Date Encounter for preventative a dult health care examination 06/10/2022 01/02/2024 Assessment & Plan (06/10/2022 4:27 PM EDT): Please refer to [facility] Colon cancer screening 06/10/202201/01 Burning with urination 03/25/202201/01 Assessment & Plan (03/25/2022 10:54 AM EST): Pt has bacteruria but no other UTI symptoms. FU urine culture and treat accordingly. Encounters Date Type Department Care Team Description 05/23/2024 12:15 PM EDT Office Visit [address] [address] Anita Mccormack MD Abdominal pain, unspecified abdominal location (Primary Dx); Bilateral sciatica 05/23/2024 Travel 05/22/[address] [address] Noemi Aguirre MD Chart prep 05/21/[address] [phone] Noemi Aguirre MD Nurse Triage 05/01/[address] [phone] Noemi Aguirre MD [employer] Referral (I called the patient regarding a referral for [employer] services. I reached her voicemail, and left a message asking her to return my call at ext [phone].) 04/08/2024 2:20 PM EST Office Visit [facility] [address] [place] [id number] Carly Michael NP Elevated blood pressure reading in office with diagnosis of hypertension (Primary Dx); Right ear pain 04/03/2024 Patient Outreach [address] [address] Noemi Aguirre MD Care Coordination ([facility] outreach for SDOH CCA- transportation - LVM /) 04/02/[address] [address] Noemi Aguirre MD Anticoagulation; (June Recall) 04/02/[address] [address] Noemi Aguirre MD PT1 03/27/[address] [address] Jordy Steel MA DME FOR roller walker with seat 03/26/2024 9:00 AM EST Office Visit [address] [address] Noemi Aguirre MD Abnormal gait (Primary Dx); Bilateral leg pain; Essential hypertension; Memory impairment 03/26/2024 Travel 03/25/[address] [address] Jordy Steel MA Chart Prep 03/16/[address] [address] Noemi Aguirre MD Essential hypertension 03/14/2024 Patient Outreach [address] [address] Noemi Aguirre MD Pre-visit Planning (SDOH screening positive and tobacco screening positive) 03/06/2024 Refill [address] [place] [address] Noemi Aguirre MD from Last 3 Months Immunizations Name Administration Dates Next Due Influenza injectable quadriv alent IIV4 with preservative 02/25/2022 Moderna Covid-19 Vaccine 12+ 07/08/2020,06/03/19 21 Pneumococcal Conjugate PCV 20 03/16/2022 Tdap 01/12/2021 Zoster, Recombinant 03/16/2022 Family History Medical History Relation Name Comments Diabetes Mother Relation Name Status Comments Mother Social History Tobacco Use Types Packs/Day Years Used Date Smoking Tobacco: Never Passive Smoke Exposure: Never Smokeless Tobacco: Never Tobacco Cessation:Counseling Given: Not Answered Alcohol Use Standard Drinks/Week Comments Never 0 (1 standard drink = 0.6 oz pur e alcohol) Depression Answer Date Recorded Patient Health Questionnaire-9 Score 14 01/16/2024 Patient Health Questionnaire-9 Score 14 01/16/2024 Last PHQ-9: Questionnaire Data Not on file 1 03/18/2023 Housing Stability Answer Date Recorded What is your housing situation today? I have ted poon 03/14/[address] you li ve. Do you have problems with any of the following? None of the above 03/14/2024 Food Insecurity Answer Date Recorded Within the past 12 months, y ou worried that your food would run out before you got money to buy more: Sometimes True 2024 Within the past 12 months,th e food you bought just didn't last and you didn't have enough money to get more: Sometimes True 03/14/2024 Transportation Answer Date Recorded In the past 12 months, has l ack of transportation kept you from medical appts, meetings, work or from getting things needed for daily living? No 03/14/2024 Utilities Answer Date Recorded In the past 12 months, has t he electric, gas, oil or water company threatened to shut off services in your home? No 03/14/2024 Depression Answer Date Recorded Patient Health Questionnaire-2 Score 4 01/16/2024 Internet Access Answer Date Recorded Internet Access Q1 No 03/14/2024 Internet Access Q2 I cannot afford it 03/14/2024 Comments Unknown Sex and Gender Information Value Date Recorded Sex Assigned at Female 12/13/2021 10:21 AM EDT Legal Sex Female 10:21 AM EDT Gender Identity Female 12/13/2021 10:21 AM EDT Sexual Orientation Choose not to disclose 2021 10:21 AM EDT Last Filed Vital Signs Vital Sign Reading Time Taken Comments Blood Pressure 153/84 05/23/2024 12:19 PM EDT Pulse 72 05/23/2024 12:19 PM EDT Temperature 36.2 ??C (97.1 ??F) 05/23/2024 12:19 PM E DT Respiratory Rate 24 05/23/2024 12:19 PM EDT Oxygen Saturation 98% 05/23/2024 12:19 PM EDT Inhaled Oxygen Concentration - - Weight 67.6 kg (149 lb) 05/23/2024 12:19 PM EDT Height 165.1 cm (5' 5 ) 05/23/2024 12:19 PM EDT Body Mass Index 24.79 05/23/2024 12:19 PM EDT Plan of Treatment Health Maintenance Due Date Last Done Comments CT Colonography 1955 FIT DNA/Cologuard 1955 FIT 1955 FOBT 1955 Sigmoidoscopy 1955 Hepatitis C Screening 05/08/1975 RSV Patients and Patients Aged 60 years or older (1 - Risk 60-74 years 1-dose series) 2017 Zoster Vaccines (2 of 2) 05/11/2022 03/16/2022 COVID-19 Vaccine ( season) 2023 07/08/2020, 06/02/2020 Influenza Vaccine (#1) 2023 02/25/2022 Depression Monitoring 07/16/2024 01/16/2024, 024 Mammogram 07/25/2024 07/26/2023, 12/0 02/2021, 01/13/2022, Additional history exists Alcohol/Substance Use Screening 09/10/2024 09/11/2023 Diabetes: Hemoglobin A1C 11/08/2024 024, 08/13/2020, 08/12/2020, Additional history exists Depression Screening 01/15/2025 01/16/2024, 12/03/20 24 SDOH Screening 03/14/2025 03/14/2024 Tobacco Screening 05/23/2025 05/23/2024 Colonoscopy 05/24/2028 05/25/2023 Colorectal Cancer Screening 05/24/2028 Lipid Panel 11/08/2028 11/09/2023, 07/16, 01/08/2020 DTaP/Tdap/Td Vaccines (2 - Td or Tdap) 01/12/2031 01/12/2021 Cervical Cancer Screening Discontinued HPV/Cotest Discontinued 04/22/2020 Pap Smear Discontinued 04/22/2020 Pneumococcal Vaccine: 50+ Years Completed 03/16/2022 HIB Vaccines Aged Out No longer eligi ble based on patient's age to complete this topic HPV Vaccines Aged Out No longer eligi ble based on patient's age to complete this topic Hepatitis A Vaccines Aged Out No long er eligible based on patient's age to complete this topic Hepatitis B Vaccines Aged Out No long er eligible based on patient's age to complete this topic IPV Vaccines Aged Out No longer eligi ble based on patient's age to complete this topic Meningococcal Vaccine Aged Out No veronique may eligible based on patient's age to complete this topic RSV under 20 months Aged Out No longe r eligible based on patient's age to complete this topic Rotavirus Vaccines Aged Out No longer eligible based on patient's age to complete this topic Procedures Procedure Name Priority Date/Time Associated Diagnosis Comments XR LUMBAR SPINE 2-3 VIEWS Routine 05/23/2024 12:59 PM EDT Bilateral sciatica HEMOGLOBIN A1C Routine 11/09/2023 9:00 AM EDT Encounter for preventive health examination LIPID PANEL, STANDARD Routine 11/09/2023 9:00 AM EDT Encounter for preventive health examination BI MAMMOGRAM SCREENING TOMOSYNTHESIS BILATERAL Routine 07/26/2023 1:50 PM EDT HM COLONOSCOPY Routine 05/25/2023 HPV GENOTYPES 16,18/45 Routine 12:00 AM EST THINPREP PAP Routine 04/22/2020 12:00 AM EST from Last 3 Months or Most Recently Relevant to Health Maintenance Results * XR Lumbar Spine 2-3 Views (05/23/2024 12:59 PM EDT) Anatomical Region Laterality Modality Spine, L-spine Radiographic Marielena ging 05/23/2024 12:5 9 PM EDT Narrative 05/23/2024 1:44 PM EDT ?[facility] ?[address] ?[place] [address] ?XRay Report ? Signed ? Patient: Carina Carvajal ?MR#: [id number] ? : 1955 ?Acct:[id number] ? Age/Sex: 69 / F ?ADM Date: 05/23/24 ? Loc: HO.HHCX ? Attending Dr: Anita Mccormack MD ? Ordering Physician: Anita Mccormack MD ?? Date of Service: 05/23/24 ?? Procedure(s): XR lumbar spine 2-3V ?? Accession Number(s): [id number] ? cc: Anita Mccormack MD ? EXAMINATION: ?? XR LUMBOSACRAL SPINE ? CLINICAL INFORMATION: ?? LBP radiated to both legs ? COMPARISON: ?? None available. ? TECHNIQUE: ?? Three views of the lumbosacral spine. ? FINDINGS: ?? There is normal lumbar lordosis. There is abnormal segmentation lumbar ?? vertebrae with short T12 bilateral ribs There is grade 1 ?? anterolisthesis L4 over L5 and L5 over S1. Loss of L5-S1 disc height is ?? seen. Moderate to significant facet arthropathy seen at the L5-S1 and ?? mild facet joint arthropathy at L4-5 disc levels. There is short ?? bilateral L1 ribs ? XR/XR lumbar spine 2-3V ?? IMPRESSION: ?? Grade 1 anterolisthesis L5 over S1 with loss of L5-S1 disc height. ? The bilateral short L1 ribs. No major change from previous exam ?? 09/22/2021. ? Electronically signed by: ??Ludwin Loja MD ??05/23/2024 01:41 PM EDT RP ? Dictated By: ?Purvi,Ludwin S ? Signed By: ?<Electronically signed by Ludwin Loja MD in OV> ?05/23/24 1341 ? DD/ 1259 ? TD/TT: 05/23/24 1300 ? Shelver: JAMEEL ? Procedure Note Donotuseinterpreter, Image - 05/23/[address] [address] XRay Report Signed Patient: Adal Carvajal#: [id number] : 8Acct:[id number] Age/Sex: 69 / FADM Date: 05/23/24 Loc: HO.HHCX Attending Dr: Anita Mccormack MD Ordering Physician: Anita Mccormack MD Date of Service: 05/23/24 Procedure(s): XR lumbar spine 2-3V Accession Number(s): [id number] cc: Anita Mccormack MD EXAMINATION: XR LUMBOSACRAL SPINE CLINICAL INFORMATION: LBP radiated to both legs COMPARISON: None available. TECHNIQUE: Three views of the lumbosacral spine. FINDINGS: There is normal lumbar lordosis. There is abnormal segmentation lumbar vertebrae with short T12 bilateral ribs There is grade 1 anterolisthesis L4 over L5 and L5 over S1. Loss of L5-S1 disc height is seen. Moderate to significant facet arthropathy seen at the L5-S1 and mild facet joint arthropathy at L4-5 disc levels. There is short bilateral L1 ribs XR/XR lumbar spine 2-3V IMPRESSION: Grade 1 anterolisthesis L5 over S1 with loss of L5-S1 disc height. The bilateral short L1 ribs. No major change from previous exam 09/22/2021. Electronically signed by: Ludwin Loja MD 05/23/2024 01:41 PM EDT Dictated By: Ludwin Loja MD Signed By: <Electronically signed by Ludwin Loja MD in OV> 05/23/24 1341 DD/ 1259 TD/TT: 05/23/24 1300 Shelver: MSM us Anita Mccormack MD IMG XR PROCEDURES Final Result * Hemoglobin A1c (11/09/2023 9:00 AM EDT) Hemoglobin A1c 5.9 <6.0 % [facility] Comment:Hemoglobin A1C Refer ence Range Adults: 4.8 - 6.0 % Non diabetic: < 6.0 % Goal: < 7.0 %Additional Action Suggested: > 8.0 %Note: Hemoglobin A1c results are invalid for patients with abnormal amounts of HbF. Blood transfusions may impact the HbA1c concentration in the patient sample. Estimated Average Glucose 123 mg/dL [facility] Comment:eAG = Estimated ave rage glucose which is %A1C expressed asaverage glucose, using the formula of the Z7H-MourbitYuvojnk Glucose study (ADAG), Diabetes Care, Vol.31,#8,Sep. 2007 Blood Venous blood specimen / Unknown 11/09/2023 9:00 AM EDT 11/09/2023 11:28 AM EDT us Noemi Dixon MD LAB BLOOD ORDERABLES Final Result [facility] [address] [place] [phone] * (ABNORMAL) Lipid Panel, Standard (11/09/2023 9:00 AM EDT) Triglycerides 280(H) <150 mg/dL [facility] Comment:Desirable Triglyceri de: less than 150 mg/dLBorderline High Triglyceride 150-199 mg/dLHigh Triglyceride: 200-499 mg/dLVery High Triglyceride: greater than or equal to 5OO mg/dL Cholesterol 249(H) <200 mg/dL [facility] Comment:Desirable Cholestero l: less than 200 mg/dLBorderline High Cholesterol: 200-239 mg/dLHigh Cholesterol: greater than 239 mg/dL LDL Cholesterol Calculated 150(H) <100 mg/dL [facility] Comment:Desirable LDL: less than 100 mg/dLNear Optimal/Above Optimal LDL: 110- 129 mg/dLBorderline High LDL: 130-159 mg/dLHigh LDL: 160-189 mg/dLVery High LDL: greater than or equal to 190 mg/dL HDL Cholesterol 43 >40 mg/dL [facility] Comment:Desirable HDL: great er than 40 mg/dL Note: This HDL assay may give artificially low results in patients with liver disease. Blood Venous blood specimen / Unknown 11/09/2023 9:00 AM EDT 11/09/2023 11:34 AM EDT us Noemi Dixon MD LAB BLOOD ORDERABLES Final Result [facility] [address] [place] [address] [phone] * BI Mammogram Screening Tomosynthesis Bilateral (07/26/2023 1:50 PM EDT) Anatomical Region Laterality Modality Breast Bilateral Mammography 07/26/2023 1:50 PM EDT Narrative 08/25/2023 8:04 AM EDT ? [facility] ? [address] ?[place] [address] ? Mammography Report ? Signed ? Patient: Carina Carvajal ?MR#: [id number] ? : 1955 ?Acct:[id number] ? Age/Sex: 68 / F ?ADM Date: //24 ? Loc: HO.MAMMO ? Attending Dr: Noemi Dixon MD ? Ordering Physician: Noemi Aguirre MD ?Results: ?? 1Negative ? Date of Service: 07/26/23 ?Follow Up: 1 Year From Orig ?? inal Mammogram ? Procedure(s): MM tomosynthesis screening BI ?? Accession Number(s): [id number] ? cc: Noemi Aguirre MD ? EXAMINATION: ?? MM SCREENING DIGITAL BREAST TOMOSYNTHESIS, BILATERAL ? CLINICAL INFORMATION: ? Screening. Asymptomatic. ? COMPARISON: ?? Mammography: This study is compared with prior exams dating back to ?? 2018. ? TECHNIQUE: ?? Digital breast tomosynthesis is performed in both the craniocaudal and ?? mediolateral oblique views along with computer-aided detection (CAD). ?? Synthesized 2D images are generated from the tomosynthesis. ? FINDINGS: ?? There are scattered areas of fibroglandular density (ACR BI-RADS breast ?? composition Category b). ? There are no significant masses, abnormal calcifications, or other ?? abnormalities. ? MM/MM tomosynthesis screening BI ?? IMPRESSION: ?? No mammographic evidence of malignancy. ? ASSESSMENT: ? BI-RADS BI-RADS 1 - Negative ? RECOMMENDATION: ?? Routine annual mammography screening. ? 1 year F/U ? This examination should not preclude the clinical evaluation of a ?? suspicious palpable abnormality. ? This patient's information was entered into a reminder system with a ?? target due date for their next mammogram. ? Dictated By: ?Kateryna Zhang MD ? Signed By: ?<Electronically signed by Kateryna Zhang MD in OV> ? 08/25/23 0800 ? DD/ 1350 ? TD/TT: ? Shelver: ? Procedure Note Saturnino Arenas - 08/25/2023 [facility] [address] [place], [place] [address] Mammography Report Signed Patient: Rossy CarvajalR#: [id number] : 8Acct:[id number] Age/Sex: 68 / FADM Date: 07/26/23 Loc: HO.MAMMO Attending Dr: Noemi Dixon MD Ordering Physician: Noemi Aguirre MDResults: 1Negative Date of Service: 07/26/23Follow Up: 1 Year From Orig inal Mammogram Procedure(s): MM tomosynthesis screening BI Accession Number(s): [id number] cc: Noemi Aguirre MD EXAMINATION: MM SCREENING DIGITAL BREAST TOMOSYNTHESIS, BILATERAL CLINICAL INFORMATION: Screening. Asymptomatic. COMPARISON: Mammography: This study is compared with prior exams dating back to 2018. TECHNIQUE: Digital breast tomosynthesis is performed in both the craniocaudal and mediolateral oblique views along with computer-aided detection (CAD). Synthesized 2D images are generated from the tomosynthesis. FINDINGS: There are scattered areas of fibroglandular density (ACR BI-RADS breast composition Category b). There are no significant masses, abnormal calcifications, or other abnormalities. MM/MM tomosynthesis screening BI IMPRESSION: No mammographic evidence of malignancy. ASSESSMENT: BI-RADS BI-RADS 1 - Negative RECOMMENDATION: Routine annual mammography screening. 1 year F/U This examination should not preclude the clinical evaluation of a suspicious palpable abnormality. This patient's information was entered into a reminder system with a target due date for their next mammogram. Dictated By: Kateryna Zhang MD Signed By: <Electronically signed by Kateryna Zhang MD in OV> 08/25/23 0800 DD/ 1350 TD/TT: Shelver: us Noemi Dixon MD IMG BI PROCEDURES Fin al Result * Hm Colonoscopy (05/25/2023) Colonoscopy Normal Normal Narrative Telma Stiles - 05/25/2023 Repeat in 5 years us Historical Provider HEALTH MAINTENANCE Final Result * THINPREP PAP (04/22/2020 12:00 AM EST) Clinical Information: None given [facility] COMMENT SEE COMMENT [facility] Comment: EXPLANATORY NOTE: ? The Pap is a screening test for cervical cancer. It is ?? not a diagnostic test and is subject to false negative ?? and false positive results. It is most reliable when a ?? satisfactory sample, regularly obtained, is submitted ?? with relevant clinical findings and history, and when ?? the Pap result is evaluated along with historic and ?? current clinical information. ?? Crating And Moving Estimator: SEE COMMENT [facility] Comment: MXD, CT (ASCP) CT screening location: [address] ??[address] Interpretation/Res ult: SEE COMMENT [facility] Comment: Negative for intraepithelial lesion or malignancy. Atrophic pattern; predominantly parabasal cells LMP: NONE GIVEN [facility] Prev. BX: NG' [facility] Prev. PAP: NONE GIVEN [facility] SOURCE: None given [facility] Statement Of Adequacy: SATISFACTORY FOR EVALUATION [facility] 04/22/2020 Noemi Dixon MD LAB PATHOLOGY ORDERAB LES Final Result Performing Organization Address [facility] de Phone Number [facility] [address] * HPV GENOTYPES 16,18/45 (04/22/2020 12:00 AM EST) HPV 16 RNA NOT DETECTED NOT DETECTED [facility] HPV 18/45 RNA NOT DETECTED NOT DETECTED [facility] Comment: Methodology: Customer Care Assistant Mediated Amplification The analytical performance characteristics of this assay have been determined by [employer]. The modifications have not been cleared or approved by the FDA. This assay has been validated pursuant to the CLIA regulations and is used for clinical purposes. 04/22/2020 Noemi Dixon MD LAB CYTOLOGY ORDERABL ES Final Result Performing Organization Address [facility] Co de Phone Number [facility] [address] from Last 3 Months or Most Recently Relevant to Health Maintenance Insurance Member Subscriber Plan / Payer (Ef fective 2023-Present) Name:Carina Carvajal Relation to Subscriber:Self Name:Carina Carvajal Payer ID:Not on file Group ID:[id number] Type:Not on file Address: [address] [employer] OPTIONS (HMO D-SNP) Care Teams Assistant Surveyor Relationship Specialty Start Date End Date Noemi Aguirre MD [address] [place] [phone] PCP - General Family Medicine 10/25/17 [employer] 01/19/24
--- OUTSIDE RECORDS SUMMARY | 2024-05-23 15:39 | XMS_ITS | Encounter Summary ---
Author Organization [employer] Address 75 [facility] 7t [place] [address] Care Team Providers Care Doughnut Glazier Name Role Phone Noemi Aguirre MD Primary Care Provide r Reason for Visit * Reason Comments Pain Encounter Details Date Type Department Care Team ([facility] st Contact Info) Description 05/23/2024 12:15 PM EDT Office Visit [facility] [address] [place], [place] [phone] Anita Mccormack MD [address] [place], [place] [phone] Abdominal pain, unspecified abdominal location (Primary Dx); Bilateral sciatica Social History Tobacco Use Types Packs/Day Years [...] AM EDT documented as of this encounter Last Filed Vital Signs Vital Sign Reading [...] Mass Index 24.79 05/23/2024 12:19 PM EDT documented in this encounter Plan of Treatment Scheduled Orders Name Type Priority Associated Diagnoses Orde r Schedule Creatinine, Serum Lab Routine Abdominal pain, unspecified abdominal location Expected: 05/23/2024, Expires: 05/23/2025 BUN (Blood Urea Nitrogen) Lab Routine Abdominal pain, unspecified abdominal location Expected: 05/23/2024 (Approximate), Expires: 05/23/2025 documented as of this encounter Procedures Procedure Name Priority Date/Time Associated Diagnosis Comments XR LUMBAR SPINE 2-3 VIEWS Routine 05/23/2024 12:59 PM EDT Bilateral sciatica documented in this encounter Results * XR Lumbar Spine 2-3 Views (05/23/2024 12:59 PM EDT) Anatomical Region Laterality Modality Spine, L-spine Radiographic Marielena ging 05/23/2024 12:5 9 PM EDT Narrative 05/23/2024 1:44 PM EDT ?[facility] ?[address] ?[place] [address] ?XRay Report ? Signed ? Patient: Carvajal,Carina ?MR#: [id number] ? : 1955 ?Acct:[id number] ? Age/Sex: 69 / F ?ADM Date: 05/23/24 ? Loc: HO.HHCX ? Attending Dr: Anita Mccormack MD ? Ordering Physician: Anita Mccormack MD ?? Date of Service: 05/23/24 ?? Procedure(s): XR lumbar spine 2-3V ?? Accession Number(s): [id number] ? cc: Anita Mccormack MD ? EXAMINATION: [...] EDT RP ? Dictated By: ?Purvi,Ludwin S MD ? Signed By: ?<Electronically signed by Ludwin Loja MD in OV> ?05/23/24 1341 ? DD/ 1259 ? TD/TT: 05/23/24 1300 ? Phonograph Cartridge Assembler: MSM ? Procedure Note Donotuseinterpreter, Image - 05/23/[address] [address] XRay Report Signed Patient: Adal Carvajal#: [id number] : 8Acct:[id number] Age/Sex: 69 / FADM Date: 05/23/24 Loc: HO.HHCX Attending Dr: Anita Mccormack MD Ordering Physician: Anita Mccormack MD Date of Service: 05/23/24 Procedure(s): XR lumbar spine 2-3V Accession Number(s): [id number] cc: Anita Mccormack MD EXAMINATION: XR LUMBOSACRAL [...] 05/23/24 1341 DD/ 1259 TD/TT: 05/23/24 1300 Phonograph Cartridge Assembler: [facility] [place]ita Mccormack MD IMG XR PROCEDURES Final Result documented in this encounter Visit Diagnoses Diagnosis Abdominal pain, unspecified abdominal location- Primary Bilateral sciatica Sciatica documented in this encounter Additional Health Concerns Assessment Noted Time PHQ-9 Depression Total Score: 14 024 9:36 AM EST documented as of this encounter Care Teams Doughnut Glazier Relationship Specialty Start Date End Date Noemi Aguirre MD [address] [place] [address] PCP - General Family Medicine 10/25/17 [employer] 01/19/24 documented as of this encounter
--- OUTSIDE RECORDS SUMMARY | 2024-05-23 15:39 | XMS_ITS | Encounter Summary ---
Author Organization [employer] Address 75 [facility] 7t [place] [address] Care Team Providers Care Professional Engineer Name Role Phone Noemi Aguirre MD Primary Care Provide r Reason for Visit * Reason Onset Date Comments Nurse Triage 10/24/2023 Encounter Details Date Type Department Care Team ([facility] st Contact Info) Description 10/24/[address] [facility] [address] [place], [place] [phone] Noemi Aguirre MD [address] [place], [place] [phone] Nurse Triage Social History Tobacco Use Types Packs/Day Years Used Date Smoking Tobacco: Never Passive Smoke Exposure: Never Smokeless Tobacco: Never Alcohol Use Standard Drinks/Week Comments Never 0 (1 standard drink = 0.6 oz pur e alcohol) Depression Answer Date Recorded Patient Health Questionnaire-9 Score 15 06/12/2023 Patient Health Questionnaire-9 Score 15 06/12/2023 Last PHQ-9: Questionnaire Data Not on file 0 06/12/2023 Housing Stability Answer Date Recorded What is [...] Answer Date Recorded Patient Health Questionnaire-2 Score 3 06/12/2023 Comments Unknown Sex and Gender Information Value Date Recorded Sex Assigned at Female 12/13/2021 10:21 AM EDT Legal Sex Female 10:21 AM EDT Gender Identity Female 12/13/2021 10:21 AM EDT Sexual Orientation Choose not to disclose 2021 10:21 AM EDT documented as of this encounter Miscellaneous Notes * Telephone Encounter - Shana Cook RN - 10/24/2023 10:47 AM EDT Tc from Vy with care calling to report symptoms below . Requested to be called back at [phone]. Symptom: Confusion Outcome: Schedule an urgent appointment (within 1 hour) or talk to a nurse or provider soon Reason: Getting worse. Called Vy from [facility]- She states that care visits pt once a month and last time pt. Was seen, pt has increased confusion. Yesterday when V care went to house pt. Took about 10-15 minutes to recognize Vy and also stated I wanted to call care but I couldn't remember the name of leeger . 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 Needs. V care concerned about memory loss and wants pt. Seen by PCP RIGOBERTO. No availability with PCP until . V care requesting sooner appt with any provider on Red team as she states Pt. Memory loss is progressing quite rapidly. Appt. Made for 10/31/[address] Nair. Will forward this message to Dr. Nair to see if she wants me to extend office visit to 30 minutes as there is an opening after 1145 appt. Protocol Used: Confusion - Delirium (Adult) Protocol-Based Disposition: See in Office 10/31/[address] Nair. Positive Triage Question: * Longstanding confusion (e.g., dementia, stroke) and getting worse * All higher-acuity triage questions were negative * Telephone Encounter - Lilia Bergman - 10/24/2023 10:43 AM EDT Ernst from [facility] with [facility] calling to report symptoms below . Requested to be called back at [phone]. Symptom: Confusion Outcome: Schedule an urgent appointment (within 1 hour) or talk to a nurse or provider soon Reason: Getting worse The caller accepted this outcome documented in this encounter Plan of Treatment Not on file documented as of this encounter Visit Diagnoses Not on filedocumented in this encounter Additional Health Concerns Assessment Noted Time PHQ-9 Depression Total Score: 15 024 9:27 AM EDT documented as of this encounter Care Teams Professional Engineer Relationship Specialty Start Date End Date Noemi Aguirre MD [address] [place] [address] PCP - General Family Medicine 10/25/17 [facility] 01/19/24 documented as of this encounter
--- OUTSIDE RECORDS SUMMARY | 2024-05-23 15:39 | XMS_ITS | Encounter Summary ---
Author Organization [employer] Address 75 [facility] 7t [place] [address] Care Team Providers Care Director Trade Name Role Phone Noemi Aguirre MD Primary Care Provide r Reason for Visit * Reason Onset Date Comments PT1 04/02/2024 Encounter Details Date Type Department Care Team ([facility] st Contact Info) Description 04/02/[address] [facility] MEDICINE [address] [place], [place] [phone] Noemi Aguirre MD [address] [place], [place] [phone] PT1 Social History Tobacco Use Types Packs/Day Years [...] encounter Miscellaneous Notes * Telephone Encounter - Seilna Gann - 04/02/2024 9:43 AM EST 1 of 2 Patient calling requesting PT1 Home Address verified: Y/N: Yes Provider name or facility name: [address] [place] [address] - [facility]. Escort needed: Y/N: No Do you have a wheelchair: Y/N: No If yes- Manual or electric: N/A Visits: (1x monthly) 2 of 2 Patient calling requesting PT1 Home Address verified: Y/N: Yes Provider name or facility name: [address] [place] [address] - [facility] Escort needed: Y/N: No Do you have a wheelchair: Y/N: No If yes- Manual or electric: N/A Visits: (1x monthly) documented in this encounter Plan of Treatment Not on file documented as of this encounter Visit Diagnoses Not on filedocumented in this encounter Additional Health Concerns Assessment Noted Time PHQ-9 Depression Total Score: 14 024 9:36 AM EST documented as of this encounter Care Teams Director Trade Relationship Specialty Start Date End Date Noemi Aguirre MD [address] [place] [address] PCP - General Family Medicine 10/25/17 [employer] 01/19/24 documented as of this encounter
--- OUTSIDE RECORDS SUMMARY | 2024-05-23 15:39 | XMS_ITS | Encounter Summary ---
Author Organization [employer] Address 75 [facility] 7t [place] [address] Care Team Providers Care Conditioning Machine Operator Name Role Phone Noemi Aguirre MD Primary Care Provide r Encounter Details Date Type Department Care Team (Latest Contact Info) Description 05/23/2024 Travel Social History Tobacco Use Types Packs/Day Years [...] documented as of this encounter Care Teams Conditioning Machine Operator Relationship Specialty Start Date End Date Noemi Aguirre MD [address] [place] [address] PCP - General Family Medicine 10/25/17 [facility] 01/19/24 documented as of this encounter
--- OUTSIDE RECORDS SUMMARY | 2024-05-23 15:39 | XMS_ITS | Encounter Summary ---
Author Organization [employer] Address 75 [facility] 7t [place] [address] Care Team Providers Care Etched Circuit Processor Name Role Phone Noemi Aguirre MD Primary Care Provide r Reason for Visit * Reason Onset Date Comments Chart prep 05/22/2024 Encounter Details Date Type Department Care Team ([facility] st Contact Info) Description 05/22/2024 Telephone [facility] MEDICINE [address] [place], [place] [phone] Noemi Aguirre MD [address] [place], [place] [phone] Chart prep Social History Tobacco Use Types Packs/Day Years [...] is your housing situation today? I have tde poon 03/14/[address] you [...] encounter Miscellaneous Notes * Telephone Encounter - Kamla Márquez MA - 05/22/2024 10:10 AM EDT Chart Prep Labs: done Images: done Vaccines due: yes Referrals: appointment pending Screenings: not applicable Overdue care gaps: Not applicable documented in this encounter Plan of Treatment Not on file documented as of this encounter Visit Diagnoses Not on filedocumented in this encounter Additional Health Concerns Assessment Noted Time PHQ-9 Depression Total Score: 14 024 9:36 AM EST documented as of this encounter Care Teams Etched Circuit Processor Relationship Specialty Start Date End Date Noemi Aguirre MD [address] [place] [phone] PCP - General Family Medicine 10/25/17 [employer] 01/19/24 documented as of this encounter
--- OUTSIDE RECORDS SUMMARY | 2024-05-23 15:39 | XMS_ITS | Encounter Summary ---
Author Organization [employer] Address 75 [facility] 7t [place] [address] Care Team Providers Care Plant Director Name Role Phone Noemi Aguirre MD Primary Care Provide r Reason for Visit * Reason Onset Date Comments Nurse Triage 05/21/2024 Encounter Details Date Type Department Care Team ([facility] st Contact Info) Description 05/21/2024 Telephone [facility] MEDICINE [address] [place], [place] [phone] Noemi Aguirre MD [address] [place], [place] [phone] Nurse Triage Social History Tobacco Use Types [...] encounter Miscellaneous Notes * Telephone Encounter - Jeimy Lal RN - 05/22/2024 9:35 AM EDT TC placed to [employer], they report pt.'s walker has been ready at the store since April however theywere unable to contact patient. They report patient can call or go to store at any time to metal pickling equipment operator or set up delivery. TC placed to pt. To make aware, no answer, left message requesting call back to Red Team RN upon receipt of message. Pt. To f/up at scheduled appt. Tomorrow 05/23/24 or sooner prn * Telephone Encounter - Shana Cook RN - 05/21/2024 1:58 PM EDT Called pt. Via [employer] change house attendant [phone] [address]. Pt. Speaks Georgian. Called pt. Back. Pt. States that she was supposed to be getting an Endoscopy but, has not heard from anyone. Pt. States that she has been having a pressure on her top of her head. Pt. States it is not like a headache or pain but likea pressure. Pt. States that she has Hypertension but that her Blood pressures have been normal according to [facility] nurse. Pt states she just started exercising and is not sure if that has to do with anything. Pt also states that she gets both thighs pain on and off. Pt. Denies any redness or swelling and when pt. Gets her pain she limps to walk. Pt. States that she was supposed to get a walker with a chair but when the company brought the walker, pt. Was not home and they never came back to deliver chair that PCP ordered in the past. I did make appt. For pt. For 05/23/24 at 1215pm but, I will send this note to Red team nurses to follow up on the walker with seat that pt. Is supposed to receive and never did. I do see a order for [employer] for a walker with seat from 03/27/24 under media. Please call [employer] to update status of walker delivery to pt. home Protocol Used: Headache (Adult) Protocol-Based Disposition: See in Office 05/23/[address] enriquez Video visit offer not recorded Positive Triage Question: * Headache started during exertion (e.g., sex, strenuous exercise, heavy lifting) * All higher-acuity triage questions were negative * Telephone Encounter - Selina Gann - 05/21/2024 1:27 PM EDT Symptoms: Weakness, Headache Outcome: Schedule an urgent appointment (within 1 hour) or talk to a nurse or provider soon Reason: Started within the past 3 days The caller accepted this outcome. Faroese documented in this encounter Plan of Treatment Not on file documented as of this encounter Visit Diagnoses Not on filedocumented in this encounter Additional Health Concerns Assessment Noted Time PHQ-9 Depression Total Score: 14 024 9:36 AM EST documented as of this encounter Care Teams Plant Director Relationship Specialty Start Date End Date Noemi Aguirre MD [address] [place] [address] PCP - General Family Medicine 10/25/17 [employer] 01/19/24 documented as of this encounter
[2024-05-23 16:40] LABS: Blood Urea Nitrogen 12 mg/dL (9-16); Estimated Glomerular Filt Rate > 60
== END 2024-05-23 13:00 | disposition home or self-care (01) ==
LOC: HO.HHCX 12:59
PROVIDERS: Visit Provider Internal Medicine
DX: M54.31 Sciatica, right side (principal); M54.32 Sciatica, left side; R10.9 Unspecified abdominal pain
CPT/HCPCS: 36415; 72100; 82565; 84520

== ENCOUNTER → 2024-05-23 12:59 | Outpatient (BNV) | payer OTHER, SELFPAY | PROVIDERS: Visit Provider Radiology Diagnostic Radiology | DX: M54.31 Sciatica, right side (principal); M54.32 Sciatica, left side | CPT/HCPCS: 72100 ==

== ENCOUNTER 2024-05-23 13:14 | Outpatient (REF) | payer OTHER, SELFPAY | END 2024-05-23 13:15 | disposition home or self-care (01) | LOC: HO.HHCL 13:14 | PROVIDERS: Visit Provider Internal Medicine | DX: Z13.89 Encounter for screening for other disorder (principal) ==

== ENCOUNTER 2024-09-18 15:17 | Outpatient (AMB) | payer OTHER, SELFPAY ==
--- NOTE | 2024-09-18 15:31 | A.OFFVIS_ITS ---
Vital Signs 09/18/24 15:52 Height 5 ft 5 in BP 174/88 H Blood Pressure Location Rt brachial Position Sitting Pulse 60 Pulse Source Pulse Oximeter Pulse Oximetry (%) 98 Oxygen Delivery Method Room Air Intake Visit Reasons: gerd r/s 08/13 Intake Note: Patient in office today in follow up of GERD. CC: Patient c/o nausea, and epigastric pain, abdominal bloating but not as bad before. Accompanied by: Self / Same As Patient Allergies No Known Allergies Allergy (Verified 09/18/24 16:00) Medication List - Last Reconciled 09/18/24 by MARIYA Mathis albuterol sulfate 90 mcg/actuation (ProAir HFA) 2 puffs PO Q4-6H PRN buspirone 15 mg PO DAILY calcium carbonate 600 mg PO DAILY cholecalciferol (vitamin D3) 25 mcg PO DAILY clonazepam 1 mg PO TID diclofenac sodium 1% 4 grams topical QID 30 days escitalopram oxalate 20 mg PO DAILY famotidine (Acid Telecommunication Engineer (famotidine)) 20 mg PO BEDTIME fluticasone propionate 110 mcg/actuation (Flovent HFA) 2 puffs inhalation BID hydrochlorothiazide 25 mg PO DAILY latanoprost 0.005% 1 drp ophthalmic (eye) QPM losartan 100 mg PO DAILY naproxen 500 mg PO Q12H PRN 30 days omeprazole 20 mg PO BID polyethylene glycol 3350 17 grams PO DAILY pravastatin 20 mg PO DAILY HPI HPI gerd r/s 08/13: Details: Assessment & Plan (1) Tubular adenoma of colon: Comment: 2023 SCOPE= 1 TA REPEAT 5 YEARS Code(s): D12.6 - Benign neoplasm of colon, unspecified Category: Medical (2) GERD (gastroesophageal reflux disease): Code(s): K21.9 - Gastro-esophageal reflux disease without esophagitis Category: Medical (3) Benzodiazepine dependence: Code(s): F13.20 - Sedative, hypnotic or anxiolytic dependence, uncomplicated Category: Medical (4) Groin lump: Code(s): R19.09 - Other intra-abdominal and pelvic swelling, mass and lump Category: Medical (5) Epigastric pain: Code(s): R10.13 - Epigastric pain Category: Medical (6) Pre-op examination: Code(s): Z01.818 - Encounter for other preprocedural examination Category: Medical Plan The procedure should be repeated in 5 years. The procedure was well tolerated. The results were explained and the patient is agreeable to the follow-up interval as stated. The bowel pattern has returned to normal. Education was provided to tell any 1st degree relatives about their findings to be sure that they are screened by age 45. Educated that they will be put on a recall list when it is time for their repeat scope but should they move out of state or away from the hospital they will need to remember along with their primary to repeat the procedure in a timely fashion to avoid any adverse complications. About 3 mos ago she was feeling sick and weak with nausea, and having dry heaves. She says she vomited up a lot of transparent balls hanging from long white sticks. She tried to pop them but they did not pop, she says she pulled on these and it felt like the lining of her mouth would come out. Then they went back in. She says she wants an EGD for this. I will order this for her c/o nausea, but I can't help but wonder if the patient has some semi delusional disorder as we continue to discuss her health. She also wants us to look from her mouth all the way down indicating her groin area, but I try to explain why this is not possible. I remind her of the US I ordered last January, and that this would be the study to address her groin lump. She needs to look for radiology to call her and/or call them back to get this scheduled. ROV EGD. Orders: Orders EGD with [facility] - GI Use Only Today R10.13 - Epigastric pain US abdomen complete Today R19.09 - Other intra-abdominal and pelvic swelling, mass and lump ULTRASOUND OF THE ABDOMEN 10/2023 FINDINGS: PANCREAS: Normal. ABDOMINAL AORTA: Atherosclerotic change seen in the aorta without aneurysm. INFERIOR VENA CAVA: Visualized portions are normal. LIVER: The liver is normal in size. The liver contour is normal. There is diffuse increased liver parenchymal echogenicity, consistent with hepatic steatosis. No focal hepatic lesion. There is no intrahepatic biliary duct dilatation seen. GALLBLADDER: Normal. The gallbladder is physiologically distended without evidence of stones, sludge, polyps, wall thickening or pericholecystic fluid. COMMON BILE DUCT: Normal in caliber measuring 0.6 cm in diameter. RIGHT KIDNEY: No hydronephrosis. No renal calculi or focal parenchymal lesions. The kidney measures 10.7 cm in maximum dimension. LEFT KIDNEY: A benign mid renal 1.6 cm Bosniak class I renal cyst is noted which requires no additional imaging or follow up. No solid renal masses are seen. No hydronephrosis or renal calculi. The kidney measures 10.6 cm in maximum dimension. SPLEEN: Normal. The spleen measures 9.5 cm in maximum dimension. FREE FLUID: None. US/US abdomen complete IMPRESSION: Hepatic steatosis. A cause for the patient's upper abdominal pain is not seen and no gallbladder disease is detected. EGD BIOPSY CORRESPONDENCE On 04/02/24 @ 09:06 Cary Ocampo Wrote To Pablo Matamoros noted Cary Ocampo removed from item. On 03/29/24 @ 15:13 oRnit Hays Wrote To Cary Ocampo (2) called pt and lvm for her to call back to be r/s On 02/08/24 @ 11:33 Nick Daley Wrote To [facility] Pt called and reports that she needs to r/s her procedure today because she already ate today by accident. Please contact to r/s at earliest convenience. Thank you. On 02/01/24 @ 11:28 Cary Ocampo Wrote To [facility] noted Cary Ocampo removed from item. On 01/31/24 @ 13:13 Anette Ashley Wrote To Cary Ocampo (2) Patient's niece Winifred at [phone] confirms procedure for TH. 02/08/24 ; confirms transportation to return home. PHONE CALL REQUESTED REGARDING MEDICATIONS. Pt is aware to arrive 2 hours before procedure time. Provided GI office phone num.Option # [phone] & ext [phone] for Nurse navigator. In addition, notified pt Chart production checker/Short Stay Surgery will be reaching out a day before to confirm precise time of arrival. TODAY'S VISIT Patient has been lost to follow-up since 06/2023 No change in her sx, meds were being refilled by Dr. Martin. She had to cancel EGD, now ready to reschedule. Still nausea and no appetite, GES may also be helpful. She has o2o bid and also famotidine via Dr. Staples. She describes now a slightly differrent presentation of associated pressure on the top of her head and on my scalp but deep inside. Dizziness but no visual changes and it is not a MUNOZ. She had a negative MRI of the brain in 2023. Stil could be atypical migraine if no othe rGI cause found. ROV 3 mos. PFSH Medical History Helicobacter pylori gastritis Elevated cholesterol Precordial chest pain RBBB (right bundle branch block) Back pain GERD (gastroesophageal reflux disease) Severe needle phobia Anxiety Depression HTN (hypertension) Patellofemoral arthralgia of both knees Surgical History H/O colonoscopy History of dental surgery Family History Father No problems noted. Mother No problems noted. Social History Alcohol intake: never Patient Tobacco Use Status: Never used Tobacco Substance Use Type: Marijuana Review of Systems Const Denies fatigue, Denies fever(s), Denies night sweats, Denies poor appetite and Denies weight loss ENT Reports Normal hearing present, Denies dental pain, Denies dysphagia, Denies hearing loss, Denies mouth pain, Denies odynophagia, Denies throat swelling, Denies tongue swelling and Reports other (Dentition adequate) Card Reports no additional complaints Resp Reports no additional complaints GI Details: Reports abdominal pain, Denies melena, Denies bloating, Denies hematochezia, Denies constipation, Denies GI cramping, Denies dysphagia, Denies excessive flatus, Denies early satiety, Reports dyspepsia, Reports heartburn, Denies diarrhea, Reports nausea, Denies odynophagia, Denies vomiting and Denies hematemesis Skin/Breast Denies pruritus, Denies lesions, Denies rash and Denies jaundice Neuro Reports Normal hearing present and Denies Abnormal speech present Endo Denies fatigue Aller/Immun Denies throat swelling and Denies tongue swelling Physical Exam Vital Signs: Last Vital Signs Pulse 60 09/18/24 15:52 BP 174/88 H 09/18/24 15:52 Pulse Ox 98 09/18/24 15:52 Oxygen Delivery Method Room Air 09/18/24 15:52 Const General: cooperative, no acute distress, well developed and well groomed Nutritional Appearance: average body habitus and well nourished Orientation/consciousness: oriented to person, oriented to place and oriented to time Limitations: No language barrier HEENT Head: Yes normocephalic and Yes atraumatic Eyes General: appearance normal, both eyes and all related structures Pupils: Equal, round and reactive pupils present Neck Neck: Yes normal visual inspection and Yes no lymphadenopathy Thyroid: Thyroid normal Resp Effort & Inspection: normal respiratory effort and able to speak in complete sentences Auscultation: clear to auscultation bilaterally Cardio Rate: regular rate Rhythm: regular rhythm Heart sounds: Normal, physiologic split S2 sound present Peripheral pulses: radial pulses present and posterior tibial pulses present GI Inspection: No distended and No Abdominal panniculus present Palpation (GI): Soft to palpation, Tenderness to palpation present (GI) in the epigastrum, no guarding, not rigid and No hepatosplenomegaly present Percussion: Yes normal to percussion Auscultation: normal bowel sounds Rectal Exam - Female: deferred Skin General skin exam: no rashes or lesions noted, turgor normal, skin not dry, no jaundice, No spider nevi and no striae Rashes: no rashes Nails: normal Neuro General: oriented to person, oriented to place and oriented to time Cranial nerves: Yes Equal, round and reactive pupils present and Yes Normal hearing present Speech: No Abnormal speech present Extrem General: Yes normal to inspection, No clubbing, No cyanosis and No edema Psych Appearance: grossly normal and well kempt Mental Status: mental status grossly normal Speech and movement: Normal speech and movement present Affect: normal affect Attitude: cooperative Thought process: Circumstantial thought process present and not confabulating Thought content: Normal thought content present Insight: Limited insight present (Psych) Judgement: Limited judgement present (Psych) Assessment & Plan Assessment & Plan (1) GERD (gastroesophageal reflux disease): Code(s): K21.9 - Gastro-esophageal reflux disease without esophagitis Category: Medical (2) Epigastric pain: Code(s): R10.13 - Epigastric pain Category: Medical (3) Marijuana use: Code(s): F12.90 - Cannabis use, unspecified, uncomplicated Category: Medical (4) Severe needle phobia: Code(s): F40.231 - Fear of injections and transfusions Category: Medical (5) Nausea: Code(s): R11.0 - Nausea Category: Medical Plan Patient has been lost to follow-up since 06/2023 No change in her sx, meds were being refilled by Dr. Martin. She had to cancel EGD, now ready to reschedule. Still nausea and no appetite, GES may also be helpful. She has o2o bid and also famotidine via Dr. Staples. She describes now a slightly differrent presentation of associated pressure on the top of her head and on my scalp but deep inside. Dizziness but no visual changes and it is not a MUNOZ. She had a negative MRI of the brain in 2023. Still could be atypical migraine if no other GI cause found, but we will also may need to consider cannabinoid hyperemesis syndrome. ROV 3 mos. Orders: Orders NM gastric emptying study 09/18/24 R10.13 - Epigastric pain, R11.0 - Nausea Medications: New omeprazole 20 mg PO BID 60 caps 6RF K21.9 - Gastro-esophageal reflux disease without esophagitis Coding Level of Care Code Est Pt Level 3 (29606) Diagnoses GERD (gastroesophageal reflux disease) K21.9 Epigastric pain R10.13 Marijuana use F12.90 Severe needle phobia F40.231 Nausea R11.0
--- OUTSIDE RECORDS SUMMARY | 2024-09-18 15:47 | XMS_ITS | Encounter Summary ---
Author Organization [employer] Address [address] [place] [address] Care Team Providers Care Multigrapher Name Role Phone Noemi Aguirre MD Primary Care Provide r Reason for Visit * Reason Onset Date Comments verbal orders 09/17/2024 Encounter Details Date Type Department Care Team ([facility] st Contact Info) Description 09/17/2024 Telephone [facility] [address] [place], [place] [phone] Noemi Aguirre MD [address] [place], [place] [phone] verbal orders Social History Tobacco Use Types Packs/Day Years [...] Telephone Encounter - Nedra Bernal RN - 09/17/2024 1:55 PM EDT TC returned to [facility] [phone] to provide verbal orders. Mallorie verbalized understanding. Mallorie to f/u PRN. * Telephone Encounter - Anita Sanchez - 09/17/2024 1:46 PM EDT Tc from Mallorie at [facility] requesting verbal orders for fdc visits 3x a week for pt. Contact Mallorie at [phone] documented in this encounter Plan of Treatment Upcoming Encounters Date Type Department Care Team (Late st Contact Info) Description 12/03/2024 3:15 PM EDT Office Visit [facility] [address] [place], [place] [phone] Noemi Aguirre MD [address] [place] [address] documented as of this encounter Visit Diagnoses Not on filedocumented in this encounter Additional Health Concerns Assessment Noted Time PHQ-9 Depression Total Score: 14 024 9:36 AM EST documented as of this encounter Care Teams Multigrapher Relationship Specialty Start Date End Date Noemi Aguirre MD [address] [place] [address] PCP - General Family Medicine 10/25/17 [employer] 01/19/24 documented as of this encounter
[2024-09-18 15:52] VITALS: BP 174/88; PULSE 60; O2SAT 98
== END 2024-09-18 16:38 | disposition home or self-care (01) ==
LOC: HO.HGI 15:18
PROVIDERS: Visit Provider Nurse Practitioner
DX: K21.9 Gastro-esophageal reflux disease without esophagitis (principal); R10.13 Epigastric pain; F12.90 Cannabis use, unspecified, uncomplicated; F40.231 Fear of injections and transfusions; R11.0 Nausea
CPT/HCPCS: 99213

== ENCOUNTER → 2024-09-18 15:17 | Outpatient (BNVA) | payer OTHER, SELFPAY | PROVIDERS: Visit Provider Nurse Practitioner | DX: Z01.818 Encounter for other preprocedural examination (principal); K21.9 Gastro-esophageal reflux disease without esophagitis; R10.13 Epigastric pain; F12.90 Cannabis use, unspecified, uncomplicated; F40.231 Fear of injections and transfusions | CPT/HCPCS: 99212 ==

== ENCOUNTER 2024-10-09 14:33 | Outpatient (REF) | payer OTHER, SELFPAY ==
--- OUTSIDE RECORDS SUMMARY | 2024-10-09 15:32 | XMS_ITS | Encounter Summary ---
Author Organization [email or web address] Address [address] [place] [address] Care Team Providers Care Technology Internship Name Role Phone Noemi Aguirre MD Primary Care Provide r Reason for Visit * Reason Onset Date Comments callback requested 02/08/2024 Encounter Details Date Type Department Care Team ([facility] st Contact Info) Description 02/08/2024 Telephone [facility] [address] [place], [place] [phone] Noemi Aguirre MD [address] [place], [place] [phone] callback requested Social History Tobacco Use Types [...] 11:50 AM EST Latisha spoke to Clay (A) in regards to below message. Clay reports he was in route to speak to S in regards to patient concerns. [facility] would like to drop patients VNA services to once weekly however Clay does not feel this would be appropriate d/t patients cognitive issues. Soledad reports he provides patient's morning medications to her and watches her take them however thepatients TECHNICAL CABLE JOINTER is supposed to give PM medications. Clay leaves them pre- packed however he found out the patient hasn't been taking her evening pills (they are pre-packed for her and TECHNICAL CABLE JOINTER is supposedto remind her to take medication). [...] taking PM medications. Clay is advocating with [facility] to ensure patient stays with daily VNA visits for medication administration. RN spoke to Marielena in regards to TECHNICAL CABLE JOINTER portion who reports she will place a new referral to a different TECHNICAL CABLE JOINTER agency for the patient. Sending to PCP as FYI. * Telephone Encounter - Nedra Bernal RN - 02/08/2024 2:23 PM EST TC placed to Vy [phone]. Vy reports the patient currently receives TECHNICAL CABLE JOINTER services thru [facility] for 1 hour a day however they are going to discharge her from TECHNICAL CABLE JOINTER services. Per Vy, the patient has had 3-4 TECHNICAL CABLE JOINTER's in the last 3 months because TECHNICAL CABLE JOINTER's are afraid of patient. Per Vy,the last TECHNICAL CABLE JOINTER who went to the home went alone and the patient kept stating Where's the other lady that was with you? Tell her to come inside . Vy also reports the patient is currently in housing court as well because her neighbors have complained that her behaviors are disruptive. Vy reports the patient will need to be referred a different agency for TECHNICAL CABLE JOINTER services. Vy reports the patients needs have increased d/t her memory problems and they are unable to accommodate those needs. Vy confirms the patient can continue to attend day program at [facility] daily 8am-noon. Patient also receives VNA services thru [facility]. RN called Latisha ([facility] liaison) to inquire [...] Marielena in forms to establish a new TECHNICAL CABLE JOINTER provider. * Telephone Encounter - Bakari Reeves - 02/08/2024 10:37 AM EST Tc from Linette with [facility] requesting a callback to discuss pt mental health concerns [phone] documented in this encounter Plan of Treatment Upcoming Encounters Date Type Department Care Team (Late st Contact Info) Description 12/03/2024 3:15 PM EDT Office Visit [facility] [address] [place] [address] Noemi Aguirre MD [address] [place] [address] documented as of this encounter Visit Diagnoses Not on filedocumented in this encounter Additional Health Concerns Assessment Noted Time PHQ-9 Depression Total Score: 14 024 9:36 AM EST documented as of this encounter Care Teams Technology Internship Relationship Specialty Start Date End Date Noemi Aguirre MD [address] [place] [address] PCP - General Family Medicine 10/25/17 [employer] 01/19/24 documented as of this encounter
--- OUTSIDE RECORDS SUMMARY | 2024-10-09 15:32 | XMS_ITS | Clinical Summary ---
Author Organization [employer] Address [address] [facility] 7t [place] [address] Care Team Providers Care Skidder Runner Name Role Phone Noemi Aguirre MD Primary [...] the evening and 2 tablets before bedtime. 09/09/19 21 Active clonazePAM (KlonoPIN) 1 MG tablet TAKE 1 TABLET BY MOUTH TWICE DAILY AND MAY TAKE ADDITIONAL TABLET NEEDED FOR PANIC ATTACK 02/16/19 23 Active Diclofenac Sodium 1 % gel APPLY TO THE AFFECTED AREA(S) 4 GRAMS TOPICALLY FOUR TIMES DAILY 01/05/20 22 Active escitalopram (Lexapro) 20 MG tablet Take 20 mg by mouth in the morning. 02/16/19 23 Active latanoprost (Xalatan) 0.005 % ophthalmic solution PLACE 1 DROP IN EACH EYE AT BEDTIME 01/04/20 22 Active tiZANidine (Zanaflex) 2 MG tablet TAKE 1 TABLET BY MOUTH EVERY 6 TO 8 HOURS NEEDED. DO NOT EXCEED 3 DOSES IN 24 HOURS 02/16/19 23 Active trimethoprim-po lymyxin b (Polytrim) ophthalmic solutionIndicat ions:Abrasion of left cornea, initial encounter Instill 1 drop left eye every 3 hours, max 6 doses a day for 10 days. 10 mL 04/20/19 23 Active prednisoLONE acetate (Pred-Forte) 1 % ophthalmic suspensionIndic ations:Uveitis of left eye Administer 1 drop into the left eye every 4 (four) hours. Shake bottle before using. 10 mL 04/21/19 23 Active Lumigan 0.01 % ophthalmic solution PLACE 1 DROP IN EACH EYE AT BEDTIME 08/30/19 23 Active busPIRone (Buspar) 7.5 MG tablet 09/10/19 23 Active Vyzulta 0.024 % solution 09/09/19 23 Active albuterol (2.5 MG/3ML) 0.083% nebulizer solutionIndicat ions:Moderate persistent asthma without complication Take 3 mL (2.5 mg) by nebulization every 6 (six) hours if needed for wheezing. 75 mL 05/05/19 24 Active lidocaine (Lidoderm) 5 % patchIndication s:Chronic bilateral low back pain without sciatica APPLY 1-2 PATCHES TO SKIN EVERY DAY. MAY LEAVE ON FOR UP TO 12 HOURS THEN REMOVE FOR 12 HOURS 60 patch 2 06/12/19 24 Active Clenpiq 10-3.5-12 MG-GM -GM/175ML solution MIX DIRECTED AND DRINK 175 ML DAILY FOR 2 DOSES. TAKE THE FIRST DOSE BETWEEN 5-9 PM THE EVENING BEFORE THE COLONOSCOPY AND THE 2ND DOSE THE NEXT DAY 5 HOURS BEFORE 01/26/20 23 Active busPIRone (Buspar) 15 MG tablet 06/27/19 24 Active naproxen (Naprosyn) 500 MG tabletIndicatio ns:Chronic bilateral low back pain without sciatica TAKE 1 TABLET BY MOUTH EVERY TWELVE HOURS NEEDED FOR PAIN 40 tablet 08/03/19 24 Active albuterol (Ventolin HFA) 108 (90 Base) MCG/ACT inhalerIndicati ons:Moderate persistent asthma without complication INHALE 2 PUFFS BY MOUTH EVERY 4 TO 6 HOURS NEEDED FOR COUGH, FOR WHEEZING AND SHORTNESS OF BREATH 18 g 1 09/04/19 24 Active buPROPion XL (Wellbutrin XL) 150 MG 24 hr tablet Take 150 mg by mouth in the morning. 09/21/19 24 Active albuterol (2.5 MG/3ML) 0.083% nebulizer solutionIndicat ions:Mild intermittent asthma, unspecified whether complicated INHALE 1 AMPULE USING A NEBULIZER EVERY 4 HOURS NEEDED FOR WHEEZING 90 mL 3 11/14/19 24 Active GaviLAX 17 GM/SCOOP powder TAKE 17 GM MIXED IN 8 OUNCES OF WATER, COFFEE OR TEA ONCE DAILY 510 g 1 11/22/20 24 Active polycarbophil (Fibercon) 625 MG tabletIndicatio ns:Gastroesopha geal reflux disease, unspecified whether esophagitis present Take 1 tablet (625 mg) by mouth 2 times daily. 60 tablet 3 01/16/20 24 2024 Active omeprazole (PriLOSEC) [address] capsuleIndicati ons:Gastroesoph ageal reflux disease, unspecified whether esophagitis present TAKE 1 CAPSULE BY MOUTH TWICE DAILY IN THE MORNING AND AT BEDTIME 180 capsule 1 01/16/20 24 Active Simethicone (Gas-Ex) 125 MG tablet tabletIndicatio ns:Gastroesopha geal reflux disease, unspecified whether esophagitis present Take 1 tablet (125 mg) by mouth if needed in the morning, at noon, in the evening, and at bedtime (GAS/BLOATING). 120 tablet 3 01/16/20 24 Active Saccharomyces boulardii (probiotic) 250 MG capsuleIndicati ons:Gastroesoph ageal reflux disease, unspecified whether esophagitis present Take 1 capsule (250 mg) by mouth Once per day. 30 capsule 3 01/16/20 24 2024 Active calcium carbonate 1500 (600 Ca) MG tablet TAKE 1 TABLET BY MOUTH TWICE DAILY IN THE MORNING AND IN THE EVENING WITH MEALS (supplement) 180 tablet 3 01/18/20 24 Active Mometasone Furoate (Asmanex HFA) 100 MCG/ACT aerosolIndicati ons:Moderate persistent asthma without complication INHALE 2 PUFFS BY MOUTH TWICE DAILY. RINSE MOUTH AFTER USING. 13 g 1 02/06/20 24 Active cholecalciferol (Vitamin D-3) 25 MCG tablet TAKE 1 TABLET BY MOUTH AT BEDTIME 90 tablet 3 07/02/19 25 Active atorvastatin (Lipitor) 40 MG tablet Take 1 tablet (40 mg) by mouth at bedtime. 30 tablet 07/02/19 25 2025 Active aspirin 81 MG EC tablet Take 1 tablet (81 mg) by mouth Once per day. 30 tablet 07/02/19 25 2025 Active losartan (Cozaar) 100 MG tabletIndicatio ns:Essential hypertension TAKE 1 TABLET BY MOUTH AT BEDTIME 90 tablet 1 09/27/19 25 Active hydroCHLOROthia zide (HYDRODiuril) 25 MG tablet TAKE 1 TABLET BY MOUTH EVERY MORNING 90 tablet 1 09/27/19 25 Active famotidine (Pepcid) 20 MG tabletIndicatio ns:Upper abdominal pain TAKE 1 TABLET BY MOUTH TWICE DAILY IN THE MORNING AND IN THE EVENING 60 tablet 11 10/02/19 25 Active famotidine (Pepcid) 20 MG tabletIndicatio ns:Upper abdominal pain Take 1 tablet (20 mg) by mouth 2 times daily. 60 tablet 11 09/11/19 24 2024 Discontinued losartan (Cozaar) 100 MG tabletIndicatio ns:Essential hypertension TAKE 1 TABLET BY MOUTH AT BEDTIME (HIGH BLOOD PRESSURE) 90 tablet 1 02/06/20 24 2024 Discontinued hydroCHLOROthia zide (HYDRODiuril) 25 MG tablet TAKE 1 TABLET BY MOUTH EVERY MORNING 90 tablet 1 03/06/19 25 2024 Discontinued Active Problems Patient Care Coordination No te Formatting of this note migh t be different from the original. 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 Keep BP log twice daily and follow-up with PCP Advise increase hydration during the daytime, order labs Schedule follow-up appointment with neurology, information given to patient for [facility] neurology. Start ASA and atorvastatin nightly (DC pravastatin) Abdominal pain 05/23/2024 Assessment & Plan (05/29/2024 7:34 PM EDT): Rule out kidney stones, ordered UA. Bilateral sciatica 05/23/2024 Assessment & Plan (05/29/2024 7:43 PM EDT): Take meloxicam and Tylenol as needed Ordered x-rays of the lumbar spine Declined PT Bilateral leg pain 03/26/2024 Assessment & Plan [...] with psychiatrist for medication adjustment I call [facility] today for further counseling and guidance Assessment [...] GI Series to ro anatomical abn/obstruction Order lena Gonzales anemia. Vitamin D deficiency 07/04/2017 Benzodiazepine dependence, continuous 07/04/2017 Memory impairment 07/04/2017 Assessment & Plan (03/26/2024 3:23 PM EST): Patient still waiting for appointment with memory clinic I will track referral to help with process Assessment & Plan (01/16/2024 12:13 PM EST): VNA services will be arrange Pending MRI results possible again neurology referral Assessment & Plan (10/31/2023 7:59 PM EDT): MOCA eval today is Studied primary courses no high [...] 07/04/2017 Essential hypertension 01/29/2016 Assessment & Plan (07/01/2024 4:50 PM EDT): Unclear if she is having orthostatic hypotension, will have VNA check BP twice daily and make sure that the patient is hydrated and changes positions slowly. She will continue losartan 100 mg and follow-up with PCP. Start aspirin 81 mg + atorvastatin nightly for microvascular E COMMERCE MANAGER disease Assessment & Plan (03/26/2024 3:22 PM EST): [...] Date Resolved Date Encounter for preventative [facility] care examination 06/10/2022 01/02/2024 Assessment & Plan (06/10/2022 4:27 PM EDT): Please refer to [facility] Colon cancer screening 06/10/202201/01 Burning with urination 03/25/202201/01 Assessment & Plan (03/25/2022 10:54 AM EST): Pt has bacteruria but no other UTI symptoms. FU urine culture and treat accordingly. Encounters Date Type Department Care Team Description 09/30/2024 Refill [facility] [address] [place] [phone] Noemi Aguirre MD Upper abdominal pain 09/25/2024 Refill [facility] [address] [place] [address] Noemi Aguirre MD Essential hypertension 09/17/2024 Telephone [facility] [address] [place] [phone] Noemi Aguirre MD verbal orders 09/12/2024 Telephone [facility] [address] [place] [phone] Noemi Aguirre MD Chart Prep 08/26/2024 Telephone [facility] [address] [place] [phone] Noemi Aguirre MD RAPIER INSERTION LOOM FIXER Referral (I called the patient regarding a request from [facility], asking for her to be referred for RAPIER INSERTION LOOM FIXER services. I reached her voicemail, and left a message asking her to return my call at ext [phone].) 08/22/2024 Telephone [facility] [address] [place] [address] Noemi Aguirre MD Referral from Last 3 Months Immunizations Immunization Administration Dates Next Due Influenza injectable quadriv [...] is your housing situation today? I have tedomid poon 03/14/[address] you [...] Sign Reading Time Taken Comments Blood Pressure 150/82 07/01/2024 3:29 PM EDT Pulse 60 07/01/2024 3:29 PM EDT Temperature 36.3 C (97.3 F) 07/01/2024 3:29 PM EDT Respiratory Rate 16 07/01/2024 3:29 PM EDT Oxygen Saturation 98% 05/23/2024 12:19 PM EDT Inhaled Oxygen Concentration - - Weight 65.5 kg (144 lb 8 oz) 07/01/2024 3:29 PM EDT Height 165.1 cm (5' 5 ) 07/01/2024 3:29 PM EDT Body Mass Index 24.05 07/01/2024 3:29 PM EDT Plan of Treatment Upcoming Encounters Date Type Department Care Team (Late st Contact Info) Description 12/03/2024 3:15 PM EDT Office Visit [facility] [address] [place] [address] Noemi Aguirre MD [address] [place] [address] Health Maintenance Due Date Last Done Comments CT Colonography 1957 FIT DNA/Cologuard 1957 FIT 1955 FOBT 1955 Sigmoidoscopy 1957 Alcohol/Substance Use Screening 1969 Hepatitis C Screening 05/08/1975 RSV Patients and Patients Aged 60 years or older (1 - Risk 60-74 years 1-dose series) 2017 Zoster Vaccines (2 of 2) 05/11/2022 03/16/2022 COVID-19 Vaccine ( season) 2023 07/08/2020, 06/02/2020 Depression Monitoring 07/16/2024 01/16/2024, 024 Mammogram 07/25/2024 07/26/2023, 12/0 02/2021, 01/13/2022, Additional history exists Influenza Vaccine (#1) 2024 02/25/2022 Diabetes: Hemoglobin A1C 11/08/2024 024, 08/13/2020, 08/12/2020, Additional history exists SDOH Screening 03/14/2025 03/14/2024 Tobacco Screening 07/01/2025 07/01/2024 Colonoscopy 05/24/2028 05/25/2023 Colorectal Cancer Screening 05/24/2028 [...] patient's age to complete this topic Meningococcal B Vaccine Aged Out No l onger eligible based on patient's age to complete [...] Procedure Name Priority Date/Time Associated Diagnosis Comments HEMOGLOBIN A1C Routine 11/09/2023 9:00 AM EDT [...] Recently Relevant to Health Maintenance Results * Hemoglobin A1c (11/09/2023 9:00 AM EDT) Hemoglobin A1c 5.9 <6.0 % [facility] Comment:Hemoglobin A1C Refer ence Range Adults: 4.8 - 6.0 % Non diabetic: < 6.0 % Goal: < 7.0 %Additional Action Suggested: > 8.0 %Note: Hemoglobin A1c results are invalid for patients with abnormal amounts of HbF. Blood transfusions may impact the HbA1c concentration in the patient sample. Estimated Average Glucose 123 mg/dL [facility] Comment:eAG = Estimated ave rage glucose which is %A1C expressed asaverage glucose, using the formula of the X9N-RctgwhzDsdasng Glucose study (ADAG), Diabetes Care, Vol.31,#8,Sep. 2007 Blood Venous blood specimen / Unknown 11/09/2023 9:00 AM EDT 11/09/2023 11:28 AM EDT us Noemi Dixon MD LAB BLOOD ORDERABLES Final Result [facility] [address] [place] [phone] * (ABNORMAL) Lipid Panel, Standard (11/09/2023 9:00 AM EDT) Triglycerides 280(H) <150 mg/dL [facility] Comment:Desirable Triglyceri de: less than 150 mg/dLBorderline High Triglyceride 150-199 mg/dLHigh Triglyceride: 200-499 mg/dLVery High Triglyceride: greater than or equal to 5OO mg/dL Cholesterol 249(H) <200 mg/dL [facility] Comment:Desirable Cholestero l: less than 200 mg/dLBorderline High Cholesterol: 200-239 mg/dLHigh Cholesterol: greater than 239 mg/dL LDL Cholesterol Calculated 150(H) <100 mg/dL [facility] Comment:Desirable LDL: less than 100 mg/dLNear Optimal/Above Optimal LDL: 110- 129 mg/dLBorderline High LDL: 130-159 mg/dLHigh LDL: 160-189 mg/dLVery High LDL: greater than or equal to 190 mg/dL HDL Cholesterol 43 >40 mg/dL [facility] Comment:Desirable HDL: great er than 40 mg/dL Note: This HDL assay may give artificially low results in patients with liver disease. Blood Venous blood specimen / Unknown 11/09/2023 9:00 AM EDT 11/09/2023 11:34 AM EDT us Noemi Dixon MD LAB BLOOD ORDERABLES Final Result Performing Organization Address City/State/[facility] Co de Phone Number [facility] [address] [place] [phone] * BI Mammogram Screening Tomosynthesis Bilateral (07/26/2023 1:50 PM EDT) Anatomical Region Laterality Modality Breast Bilateral Mammography 07/26/2023 1:50 PM EDT Narrative 08/25/2023 8:04 AM EDT [facility] [address] [place] [address] Mammography Report Signed Patient: Carina Carvajal MR#: [id number] : 1955 Acct:[id number] Age/Sex: 68 / F ADM Date: 07/26/23 Loc: AXEL Attending Dr: Noemi Dixon MD Ordering Physician: Noemi Aguirre MD Results: 1Negative Date of Service: 07/26/23 Follow Up: 1 Year From Orig inal Mammogram Procedure(s): MM tomosynthesis screening BI Accession Number(s): [id number] cc: Noemi Aguirre MD EXAMINATION: MM SCREENING [...] in OV> 08/25/23 0800 DD/ 1350 TD/TT: Clinical Esthetician: Procedure Note Donotuseinterpreter, Image - 08/25/2023 [place] [facility] [address] [place] [address] Mammography Report Signed Patient: Adal Carvajal#: [id number] : 8Acct:[id number] Age/Sex: 68 / FADM Date: 07/26/23 Loc: AXEL Attending Dr: Noemi Dixon MD Ordering Physician: Noemi Aguirre MDResults: 1Negative Date of Service: 07/26/23Follow Up: 1 Year From Orig inal Mammogram Procedure(s): MM tomosynthesis screening BI Accession Number(s): [id number] cc: Noemi Aguirre MD EXAMINATION: MM SCREENING [...] in OV> 08/25/23 0800 DD/ 1350 TD/TT: Clinical Esthetician: us Noemi Dixon MD IMG BI PROCEDURES Fin al Result * Hm Colonoscopy (05/25/2023) Colonoscopy Normal Normal Narrative Telma Stiles - 05/25/2023 Repeat in 5 years Historical Provider [facility] Final Result * THINPREP PAP (04/22/2020 12:00 AM EST) Clinical Information: None given [facility] COMMENT SEE COMMENT [facility] Comment: EXPLANATORY NOTE: The Pap is a screening test for cervical cancer. It is not a diagnostic test and is subject to false negative and false positive results. It is most reliable when a satisfactory sample, regularly obtained, is submitted with relevant clinical findings and history, and when the Pap result is evaluated along with historic and current clinical information. Photo Booth Operator: SEE COMMENT [facility] Comment: MXD, CT (ASCP) CT screening location: [address] [address] Interpretation/Res ult: SEE COMMENT [facility] Comment: Negative for intraepithelial lesion or malignancy. Atrophic pattern; predominantly parabasal cells LMP: NONE GIVEN [facility] Prev. BX: NG' [facility] Prev. PAP: NONE GIVEN [facility] SOURCE: None given [facility] Statement Of Adequacy: SATISFACTORY FOR EVALUATION [facility] 04/22/2020 Noemi Dixon MD LAB PATHOLOGY ORDERAB LES Final Result Performing Organization Address [facility] Co de Phone Number [facility] [address] * HPV GENOTYPES 16,18/45 (04/22/2020 12:00 AM EST) HPV 16 RNA NOT DETECTED NOT DETECTED [facility] HPV 18/45 RNA NOT DETECTED NOT DETECTED [facility] Comment: Methodology: Resource Economist Mediated Amplification The analytical performance characteristics of this assay have been determined by [employer]. The modifications have not been cleared or approved by the FDA. This assay has been validated pursuant to the CLIA regulations and is used for clinical purposes. 04/22/2020 Noemi Dixon MD LAB CYTOLOGY ORDERABL ES Final Result Performing Organization Address [facility] Co de Phone Number [facility] [address] from Last 3 Months or Most Recently Relevant to Health Maintenance Insurance [facility] [employer]M OPT[employer] (HMO D-SNP) [place] [id number] Care Teams Skidder Runner Relationship Specialty Start Date End Date Noemi Aguirre MD [address] [place] [phone] PCP - General Family Medicine 10/25/17 Xianguo 01/19/24
--- OUTSIDE RECORDS SUMMARY | 2024-10-09 15:32 | XMS_ITS | Encounter Summary ---
Author Organization [employer] Address [address] [facility] 7t [place] [address] Care Team Providers Care Sales Representative Publications Name Role Phone Noemi Aguirre MD Primary Care Provide r Reason for Visit * Reason Onset Date Comments Nurse Triage 10/24/2023 Encounter Details Date Type Department Care Team ([facility] st Contact Info) Description 10/24/2023 Telephone [facility] [address] [place], [place] [phone] Noemi Aguirre MD [address] [place], [place] [phone] Nurse Triage Social History Tobacco Use Types [...] 10:47 AM EDT Tc from Vy with [facility] calling to report symptoms below . Requested to be called back at [phone]. Symptom: Confusion Outcome: Schedule an urgent appointment (within 1 hour) or talk to a nurse or provider soon Reason: Getting worse. Called Vy from [facility]- She states that care visits pt once a month and last time pt. Was seen, pt has increased confusion. Yesterday when V care went to house pt. Took about 10-15 minutes to recognize Vy and also stated I wanted to call [facility] but I couldn't remember the name of themanager . When pt. 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 Pt. Does have a MOLD TOOLING TECHNICIAN come to house daily for 1 hour [...] Lilia Bergman - 10/24/2023 10:43 AM EDT Tc from [facility] with [facility] calling to report symptoms below . Requested to be called back at [phone]. Symptom: Confusion Outcome: Schedule an urgent appointment (within 1 hour) or talk to a nurse or provider soon Reason: Getting worse The caller accepted this outcome documented in this encounter Plan of Treatment Upcoming Encounters Date Type Department Care Team (Late st Contact Info) Description 12/03/2024 3:15 PM EDT Office Visit [facility] [address] [place] [address] Noemi Aguirre MD [address] [place] [address] documented as of this encounter Visit Diagnoses Not on filedocumented in this encounter Additional Health Concerns Assessment Noted Time PHQ-9 Depression Total Score: 15 024 9:27 AM EDT documented as of this encounter Care Teams Sales Representative Publications Relationship Specialty Start Date End Date Noemi Aguirre MD [address] [place] [phone] PCP - General Family Medicine 10/25/17 AMENDIA 01/19/24 documented as of this encounter
--- OUTSIDE RECORDS SUMMARY | 2024-10-09 15:32 | XMS_ITS | Encounter Summary ---
Author Organization [employer] Address [address] [facility] 7t [place] [address] Care Team Providers Care Continuous Process Machine Operator Name Role Phone Noemi Aguirre MD Primary Care Provide r Reason for Visit * Reason Onset Date Comments PT1 04/02/2024 Encounter Details Date Type Department Care Team ([facility] st Contact Info) Description 04/02/2024 Telephone [facility] [address] [place], [place] [phone] Noemi Aguirre MD [address] [place], [place] [phone] PT1 Social History Tobacco Use Types Packs/Day [...] encounter Miscellaneous Notes * Telephone Encounter - Selina Gann - 04/02/2024 9:43 AM EST 1 of 2 Patient calling requesting PT1 Home Address verified: Y/N: Yes Provider name or facility name: [facility] [address] - [facility]. Escort needed: Y/N: No Do you have a wheelchair: Y/N: No If yes- Manual or electric: N/A Visits: (1x monthly) 2 of 2 Patient calling requesting PT1 Home Address verified: Y/N: Yes Provider name or facility name: [address] [place] [address] - [facility] Escort needed: Y/N: No Do you have a wheelchair: Y/N: No If yes- Manual or electric: N/A Visits: (1x monthly) documented in this encounter Plan of Treatment Upcoming Encounters Date Type Department Care Team (Late st Contact Info) Description 12/03/2024 3:15 PM EDT Office Visit [facility] [address] [place] [address] Noemi Aguirre MD [address] [place] [address] documented as of this encounter Visit Diagnoses Not on filedocumented in this encounter Additional Health Concerns Assessment Noted Time PHQ-9 Depression Total Score: 14 024 9:36 AM EST documented as of this encounter Care Teams Continuous Process Machine Operator Relationship Specialty Start Date End Date Noemi Aguirre MD [address] [place] [address] PCP - General Family Medicine 10/25/17 [employer] 01/19/24 documented as of this encounter
--- OUTSIDE RECORDS SUMMARY | 2024-10-09 15:32 | XMS_ITS | Encounter Summary ---
Author Organization [employer] Address [address] [facility] [address] [place] [address] Care Team Providers Care Classification Case Manager Name Role Phone Noemi Aguirre MD Primary Care Provide r Reason for Visit * Reason Onset Date Comments Nurse Triage 06/26/2024 Encounter Details Date Type Department Care Team ([facility] st Contact Info) Description 06/26/2024 Telephone [facility] [address] [place], [place] [phone] Noemi Aguirre MD [address] [place], [place] [phone] Nurse Triage Social History Tobacco Use Types [...] encounter Miscellaneous Notes * Telephone Encounter - Arleen Almanzar RN - 06/26/2024 4:54 PM EDT Triage call Robel Flannery who sees Pt daily reports Pt has been very tired with some dizziness reported. Pt doesn't answer phone when called. [facility] is reporting information and will remind of scheduled apt made. Pt reports drinking liquids to [facility] but, rewriter encourages to be sure Pt is drinking 6-8 glasses daily and [facility] agrees. Pt hasn't had any falls. Pt is getting possibly too much sleep. Beginsto get ready for bed at 4pm and sleeps through the night. ASK apt with Dr. Mccormack 07/01/24 @ 330pm. Pt is offered apt 06/28/24 at 1100am but Pt is in day care program till after 12pm. Pt insurance is verified as active prior to booking. Protocol Used: Weakness (Generalized) and Fatigue (Adult) Protocol-Based Disposition: See in Office or Video Visit within 2 Weeks Positive Triage Question: * Fatigue is a chronic symptom (recurrent or ongoing AND present > 4 weeks) * All higher-acuity triage questions were negative Care Advice Discussed: * Drink Fluids * Reasons To Call Back - Still feeling weak after 2 hours of rest and fluids - Passes out (faints) - You become worse * Telephone Encounter - Deepthi Ordoñez - 06/26/2024 4:37 PM EDT Symptom: Lethargic (Tired) Outcome: Schedule an urgent appointment (within 4 hours) or talk to a nurse or provider soon Reason: Getting worse Tc from visitng nurse Prudencio calling to report pt has been feeling more tired than usual and feelt it might be due medication. Contact Prudencio at [phone] documented in this encounter Plan of Treatment Upcoming Encounters Date Type Department Care Team (Late st Contact Info) Description 12/03/2024 3:15 PM EDT Office Visit [facility] [address] [place] [phone] Noemi Aguirre MD [address] [place] [address] documented as of this encounter Visit Diagnoses Not on filedocumented in this encounter Additional Health Concerns Assessment Noted Time PHQ-9 Depression Total Score: 14 024 9:36 AM EST documented as of this encounter Care Teams Classification Case Manager Relationship Specialty Start Date End Date Noemi Aguirre MD [address] [place] [id number] PCP - General Family Medicine 10/25/17 [employer] 01/19/24 documented as of this encounter
--- OUTSIDE RECORDS SUMMARY | 2024-10-09 15:32 | XMS_ITS | Encounter Summary ---
Author Organization [employer] Address [address] [facility] 7t [place] [address] Care Team Providers Care Administrative Associate Name Role Phone Noemi Aguirre MD Primary Care Provide r Reason for Visit * Reason Comments Med Refill Encounter Details Date Type Department Care Team ([facility] st Contact Info) Description 11/28/2022 Refill [facility] MEDICINE [address] [place], [place] [phone] Noemi Aguirre MD [address] [place], [place] [phone] H. pylori infection Social History Tobacco Use [...] as of this encounter Plan of Treatment Upcoming Encounters Date Type Department Care Team (Late st Contact Info) Description 12/03/2024 3:15 PM EDT Office Visit [facility] MED[facility]INE [address] [place] [phone] Noemi Aguirre MD [address] [place] [phone] documented as of this encounter Visit Diagnoses Diagnosis H. pylori infection Helicobacter pylori (H. pylori) documented in this encounter Care Teams Administrative Associate Relationship Specialty Start Date End Date Noemi Aguirre MD [address] [place] [phone] PCP - General Family Medicine 10/25/17 [employer] 01/19/24 documented as of this encounter
--- OUTSIDE RECORDS SUMMARY | 2024-10-09 15:32 | XMS_ITS | Encounter Summary ---
Author Organization [employer] Address [address] [facility] [address] [place] [address] Care Team Providers Care Dice Table Person Name Role Phone Noemi Aguirre MD Primary Care Provide r Reason for Visit * Reason Onset Date Comments PT-1 02/20/2024 Encounter Details Date Type Department Care Team ([facility] st Contact Info) Description 02/20/2024 Telephone [facility] MEDICINE [address] [place], [place] [phone] Noemi Aguirre MD [address] [place], [place] [phone] PT-1 Social History Tobacco Use Types Packs/Day [...] Y/N: Yes Provider name or facility name: [facility] [address], [place] [address] Escort needed: Y/N: No Do you have a wheelchair: Y/N: No If yes- Manual or electric: Visits: (3 x Year) documented in this encounter Plan of Treatment Upcoming Encounters Date Type Department Care Team (Late st Contact Info) Description 12/03/2024 3:15 PM EDT Office Visit [facility] MEDICINE [address] [place] [address] Noemi Aguirre MD [address] [place] [address] documented as of this encounter Visit Diagnoses Not on filedocumented in this encounter Additional Health Concerns Assessment Noted Time PHQ-9 Depression Total Score: 14 024 9:36 AM EST documented as of this encounter Care Teams Dice Table Person Relationship Specialty Start Date End Date Noemi Aguirre MD [address] [place] [address] PCP - General Family Medicine 10/25/17 [employer] 01/19/24 documented as of this encounter
== END 2024-10-09 14:34 | disposition home or self-care (01) ==
LOC: HO.MAMMO 14:33
PROVIDERS: PCP Internal Medicine; Visit Provider Internal Medicine
DX: Z12.31 Encounter for screening mammogram for malignant neoplasm of breast (principal)
CPT/HCPCS: 77063; 77067

== ENCOUNTER → 2024-10-09 14:45 | Outpatient (BNV) | payer OTHER, SELFPAY | PROVIDERS: PCP Internal Medicine; Visit Provider Radiology Body Imaging | DX: Z12.31 Encounter for screening mammogram for malignant neoplasm of breast (principal) | CPT/HCPCS: 77063; 77067 ==

== ENCOUNTER → 2024-11-05 08:00 | Outpatient (REF) | payer OTHER, SELFPAY ==
--- NOTE | ~2024-11-05 | NM_ITS ---
EXAMINATION: DC RADIONUCLIDE SOLID FOOD GASTRIC EMPTYING 4-HOUR STUDY CLINICAL INFORMATION: R10.13 - Epigastric pain COMPARISON: None TECHNIQUE: A standard meal consisting of 4 oz of Egg Beaters brand tagged with 0.89 microcuries Tc-99m Sulfur Colloid, 8 oz water and 1 slice of toast with jelly was administered orally to the patient. Images were obtained using a dual head gamma camera in the anterior and posterior projections over of the stomach immediately post ingestion and at hourly intervals up to 4 hours post ingestion. The anterior and posterior counts at each time interval were averaged using the geometric mean and expressed as percentage of the immediate post ingestion counts. FINDINGS: There is good visualization of activity in the stomach immediately post ingestion. As the study progresses, there is good clearance of activity from the stomach and visualization of progressively increasing small bowel activity. By the end of the study, there is almost no retention noted in the stomach. Retention in the stomach at each time interval was: 1 hour and 72% (normal 37%-90%) 2 hours 53% (normal 30%-60%) 3 hours 33% 4 hours 4% (normal 0%-10%) DC/DC gastric emptying study IMPRESSION: 4-hour solid food gastric emptying study is within normal limits. For solid meal, rapid gastric emptying is less than 30% at 60 minutes. Delayed gastric emptying criteria is more than 60% remaining at 120 minutes or more than 10% at 240 minutes. The 4-hour value is the best discriminator of a normal or abnormal result). Gastric emptying study grading per JNMT Consensus Recommendations in 2008 (https://tech.snmjournals.org/content/36/44) Grade 1 (mild retention): 11-20% at 4h Grade 2 (moderate retention): 21-35% at 4h Grade 3 (severe retention): 36-50% at 4h Grade 4 (very severe retention): >50% retention at 4h Electronically signed by: Jan Shaver MD 11/05/2024 02:10 PM EDT
== END ==
LOC: HO.NUCMED 08:00
PROVIDERS: PCP Internal Medicine; Visit Provider Nurse Practitioner
DX: R10.13 Epigastric pain (principal); R11.0 Nausea
CPT/HCPCS: 78264; A9541

== ENCOUNTER → 2024-11-05 08:01 | Outpatient (BNV) | payer OTHER, SELFPAY | PROVIDERS: PCP Internal Medicine; Visit Provider Radiology Diagnostic Radiology | DX: R10.13 Epigastric pain (principal) | CPT/HCPCS: 78264 ==